=== PATIENT | female | born 1985 | race Caucasian/White ===

== ENCOUNTER 2021-04-06 07:34 | Inpatient (IN) | payer MEDICARE, MEDICAID, SELFPAY ==
--- NOTE | ~2021-04-06 | CT_ITS ---
EXAMINATION: CT ABDOMEN AND PELVIS WITH CONTRAST CLINICAL INFORMATION: Abdominal pain. Diffuse, most prominent within the right upper quadrant. COMPARISON: Most recent abdominal CT dated 11/11/2019. TECHNIQUE: Multidetector volumetric images were obtained from the superior aspect of the liver through the pubic symphysis following administration 85 mL of Omnipaque 350 intravenous contrast. Sagittal and coronal reformatted images were obtained on the technologist's workstation. Oral contrast: No This CT examination was performed using dose optimization techniques as appropriate, variously including the following: *Automated exposure control *Adjustment of mA and/or kV according to patient size (this includes techniques or standardized protocols for targeted exams where dose is matched to indication/reason for exam; i.e. extremities or head) *Use of iterative reconstruction technique DLP: 1036 mGy-cm FINDINGS: LUNG BASES: The visualized lung bases are unremarkable. LIVER, GALLBLADDER, AND BILIARY TREE: Significant hepatomegaly is redemonstrated with diffuse, heterogeneity, increased when compared to the prior examination. There is lobulated hepatic contour which has increased when compared to the prior examination. No discrete focal hepatic parenchymal lesion or biliary ductal dilatation. Status post cholecystectomy. PANCREAS: Unremarkable. SPLEEN: Splenomegaly, increased when compared to the prior examination. No parenchymal lesion. ADRENAL GLANDS: Unremarkable. KIDNEYS AND URETERS: The kidneys are normal in size, shape, and attenuation. No hydronephrosis, hydroureter, or calculi seen. No perinephric stranding. BLADDER: Distended without wall thickening or inflammatory change. GASTROINTESTINAL TRACT: Postsurgical change consistent with gastric bypass. No evidence of leak or extravasation. Mild right hepatic flexure wall thickening with minimal adjacent inflammatory change extending into the right upper quadrant, which could represent mild acute colitis. No evidence of perforation or abscess formation. No small or large bowel obstruction. Unremarkable appendix. PERITONEAL CAVITY: No intra-abdominal free air or free fluid. ABDOMINAL WALL: No significant hernia is appreciated. LYMPH NODES: Mild stranding within the retroperitoneum without significant discrete lymphadenopathy. Findings are new/increased when compared to the prior examination. VASCULAR: Unremarkable. PELVIC VISCERA: IUD within the uterus. OSSEOUS STRUCTURES: Unremarkable. CT/CT abdomen pelvis w con IMPRESSION: 1. Circumferential wall thickening of the colonic hepatic flexure with adjacent inflammatory change, consistent with acute colitis. No evidence of perforation or abscess formation. No small or large bowel obstruction. Unremarkable appendix. 2. Status post bariatric surgery without evidence of leak or obstruction. 3. Prominent hepatomegaly with increasing parenchymal echogenicity and lobulated hepatic contour when compared to the prior CT. Findings could represent steatosis and associated cirrhosis. No intra or extra hepatic biliary ductal dilatation. 4. Splenomegaly, increased when compared to the prior examination. 5. Retroperitoneal stranding without discrete lymphadenopathy, new/increased when compared to the prior examination. Fleischner guidelines were followed.
[2021-04-06 08:06] VITALS: BP 121/69; BP 136/77; PULSE 105; PULSE 94; RESP 16; TEMP 36.7; O2SAT 99; BMI 38.2
[2021-04-06 08:13] LABS: Appearance Urine HAZY; Color Urine YELLOW; Glucose Urine UA NEG (NEG); Leukocyte Esterase Urine 1+ (NEG); Nitrite Urine NEG (NEG); UACC Culture Trigger YES; Urine Blood NEG (NEG); Urine Ketones NEG (NEG); Urine Protein NEG (NEG-TRACE)
[2021-04-06 08:20] LABS: Bacteria Urine 1+ /LPF; RBC Urine 0-2 /HPF (0); Squamous Epithelial Cell Urine 2+ /LPF; UACC CULT YES
[2021-04-06 08:30] LABS: COVID-19 Test Negative (Negative)
[2021-04-06 08:35] LABS: Amphetamine Screen Urine Not Detected (Not Detect); Barbiturates, Urine Not Detected (Not Detect); Benzodiazepines Screen Urine Not Detected (Not Detect); Cannabinoid Screen Urine Not Detected (Not Detect); Cocaine Screen Urine Not Detected (Not Detect); Fentanyl, urine Not Detected (Not Detect); Opiate Screen Urine Not Detected (Not Detect); Phencyclidine Screen Urine Not Detected (Not Detect)
[2021-04-06 09:23] LABS: Basophils Absolute Auto 0.1 X10*3/uL (0.0-0.2); Basophils Percent Auto 0.8 % (0-2); SCAN SMEAR FLAG 1
[2021-04-06 09:24] LABS: Eosinophils Absolute Auto 0.2 X10*3/uL (0.0-0.4); Eosinophils Percent Auto 2.8 % (0-4); Hematocrit 27.8 % (37.0-47.0); Hemoglobin 7.5 g/dl (12.0-16.0); Imm Gran Abs Auto 0.01 X10*3/uL (0.00-0.03); Imm Gran Pct Auto 0.2 % (0.0-0.4); Lymphocytes Absolute Auto 2.6 X10*3/uL (1.2-4.9); Lymphocytes Percent Auto 40.4 % (20-40); MANUAL DIFF FLAG SCAN; Mean Corpuscular Hemoglobin 18.7 pg (27.0-33.0); Mean Corpuscular Volume 69.3 fL (80.0-98.0); Monocytes Absolute Auto 0.4 X10*3/uL (0.1-1.2); Monocytes Percent Auto 6.6 % (2-11); Neutrophils Absolute Auto 3.1 x10*3/uL (2.0-8.3); Neutrophils Percent Auto 49.2 % (45-73); Red Blood Count 4.01 X10*6/uL (4.20-5.50); Red Cell Distribution Width 20.6 % (11.0-16.0); White Blood Count 6.3 X10*3/uL (4.8-10.8)
--- NOTE | 2021-04-06 09:24 | ED.ALCOHOL ---
HPI - Alcohol General Chief Complaint: Psychiatric Symptoms Stated Complaint: abd pain Time Seen by Provider: 04/06/21 09:23 Source: patient Mode of arrival: ambulatory Limitations: no limitations History of Present Illness HPI narrative: This is a 35-year-old female past medical history significant for depression, borderline personality disorder, panic disorder, CHF, alcohol use disorder presents to the emergency department with diffuse belly pain, and hopes to stop drinking alcohol. Patient tells me that she is a heavy drinker she has between 10-20 nips/day. She tells me that this past year she had a 6 month period where she did not drink. She tells me that when she does not drink she begins to feel bad, and experiences abdominal pain. She tells me she has a history of delirium tremens and history of alcohol withdrawal seizures. At this time she is not experiencing any visual, auditory or tactile hallucinations. Her last drink was just prior to her arrival, she had a nip. She tells me she feels upset because she has not been able to stop drinking, she tells me she knows that this can kill her. She denies drug, and tobacco use. She denies suicidal ideation and homicidal ideation. She tells me she has had great luck in the past with detox facilities, she has gone to multiple ones. She denies any other medical complaints at this time other than abdominal pain. MD complaint: alcohol dependence and desires rehab Last drink: Just prior to admission Amount of alcohol consumed: 1 nip Chronic alcohol use: Yes Previous visits for alcohol intoxication: Yes Associated symptoms: abdominal pain Treatments prior to arrival: none Related Data Previous Rx's Medication Instructions Recorded ferrous sulfate 325 mg (65 mg 325 mg PO DAILY #20 tab 04/06/21 iron) tablet,delayed release pramoxine 1 % topical foam 1 appl RI DAILY #15 g 04/06/21 (Proctofoam) Allergies Allergy/AdvReac Type Severity Reaction Status Date / Time diphenhydramine AdvReac Unknown FALLS Unverified 12/15/19 19:22 [From BENADRYL] ASLEEP FOR LONG TIME- DOESN'T LIKE WAY IT MAKES FEEL pt states no food/medication Allergy Unknown Uncoded 04/22/17 00:00 a Review of Systems Review of Systems: Constitutional : No Fever, No Chills ENT/Mouth : No sore throat, No Rhinorrhea Eyes: No Eye Pain, No Swelling, No Redness Cardiovascular : No Chest Pain, No SOB Respiratory : No Cough, No Sputum Gastrointestinal : No Nausea, No Vomiting, No Diarrhea, No abdominal Pain Genitourinary : No Dysuria, No Hematuria Musculoskeletal : No joint pain, No Myalgias, No Joint Swelling Skin : No Skin Lesions, No rash Neuro : No Weakness, No Numbness Psych : No Anxiety, No Depression, No SI/HI/AH/VH All other systems reviewed and are negative Yes all other systems are reviewed and are negative [facility] Past Medical History Attestation statement: The following information was validated with the patient. Source: old records reviewed and nursing notes reviewed Social History Social History Advance Directives: No Advance Directives Information Provided: Yes Patient : No Physical Exam Vital Signs: Vital Signs: Last Vital Signs Temp 98.1 F 04/06/21 08:06 Pulse 89 04/06/21 12:23 Resp 19 04/06/21 12:23 BP 112/63 04/06/21 12:23 Pulse Ox 96 04/06/21 12:23 BMI result Body Mass Index 38.2 At this time vital signs are stable. Appearance: Alert.? Oriented X3.? No acute distress.? Head: Normocephalic, atraumatic, no step-offs or deformities Eyes: Pupils equal, round and reactive to light.? ENT: Pharynx normal.? Neck: Normal inspection.? Neck supple.? CVS: Normal heart rate and rhythm.? Pulses normal.? Respiratory: No respiratory distress.? Breath sounds normal.? Abdomen: Soft and nontender.? Skin: Skin warm and dry.? Normal skin color.? Normal skin turgor.? Extremities: No lower extremity edema.? No calf ttp. 5/5 strength to bilateral upper and lower extremities Back: No midline tenderness, no C-spine tenderness, full range of motion, no CVA tenderness bilaterally Rectal: Normal rectal tone, external hemorrhoids noted, nonthrombosed, nonbleeding. No internal hemorrhoids or lumps or masses upon palpation. OBS was obtained and sent to the lab Neuro: Oriented X 3.? No motor deficit.? No sensory deficit. Cranial nerves 2-12 intact. No resting tremors, asterixis, or tongue fasciculations. Course Reevaluation(s) Reevaluation #1: Patient's H&H is noted to be lower than previously. She does not report he minute emesis, hematochezia , she is not currently on her menses. She has not had her period forr a while as she has an IUD. UA not infected findings likely secondary to contamination. Urine tox screen negative. COVID negative. Patient is noted to be anemic, platelets are low noted to be lower than usual. Patient's ethanol to 77, chemistry appears to be at patient's baseline, with an elevated bilirubin, alk-phos and AST. Time: 09:58 Reevaluation #2: Patient now tells me that she had a few episodes of rectal bleeding yesterday, she tells me she didnt want to say anything. She scared she has ascites and bad cirrhosis. Patients OBSX1 neagtive. Noted to have an external hemorrhoid. Patient also tells me that she is on iron pills however she has not been taking it. When she gets discharged I will send her home with ferrous sulfate p.o. daily. Fluids have been given. At this time patient has been placed in physician observation to allow more time for BHN to evaluate patient. At time the observation was started, patient was common cooperative, not in acute withdrawal. Physical exam unchanged from initial. Time: 13:01 MDM - Alcohol MDM Narrative Medical decision making narrative: 924 35 yo f pmhx depression, borderline personality d/o, panic d/o, CHF, alcohol use disorder presents to the emergency department with diffuse belly pain, and hopes to stop drinking alcohol. Last drink prior to arrival. No visual, auditory or tactile hallucinations. I did a CIWA score on the patient- 0 PE benign. Neuro intact. CN 2-12 intact. Plan- basic labs, UA, urine tox, covid, ethanol. Will give ativan PO 2 mg. Medical Records Attestation: I reviewed the patient's medical records. Lab Data Attestation: I reviewed the patient's lab results. Result diagrams: 04/06/21 09:14 04/06/21 09:15 Labs: Lab Results 04/06/21 04/06/21 04/06/21 Range/Units 08:04 08:04 08:04 WBC (4.8-10.8) X10*3/uL RBC (4.20-5.50) X10*6/uL Hgb (12.0-16.0) g/dl Hct (37.0-47.0) % MCV (80.0-98.0) fL MCH (27.0-33.0) pg MCHC (31.0-35.0) g/dl RDW (11.0-16.0) % Plt Count (160-400) X10*3/uL MPV Immature Gran % (Auto) (0.0-0.4) % Neut % (Auto) (45-73) % Lymph % (Auto) (20-40) % [place] % (Auto) (2-11) % Eos % (Auto) (0-4) % Baso % (Auto) (0-2) % Lymph # (Auto) (1.2-4.9) X10*3/uL [place] # (Auto) (0.1-1.2) X10*3/uL Eos # (Auto) (0.0-0.4) X10*3/uL Baso # (Auto) (0.0-0.2) X10*3/uL Abs Immat Gran (auto) (0.00-0.03) X10*3/uL Absolute Neuts (auto) (2.0-8.3) x10*3/uL Absolute Nucleated RBC (0.0-0.012) X10*3/uL Nucleated RBC % (auto) (0.0-0.2) /100WBC Smear Tech's Comments Sodium (135-145) mmol/L Potassium (3.3-5.1) mmol/L Chloride (96-108) mmol/L Carbon Dioxide (22-29) mmol/L Anion Gap (12-20) BUN (9-16) mg/dL Creatinine (0.5-1.4) mg/dL Estim Creat Clear Calc Estimated GFR Random Glucose (60-115) mg/dL Calcium (8.4-10.2) mg/dL Magnesium (1.6-2.6) mg/dL Total Bilirubin (0.0-1.0) mg/dL AST (5-31) U/L ALT (0-31) U/L Alkaline Phosphatase (39-117) U/L Total Protein (6.5-8.0) g/dL Albumin (3.5-5.0) g/dL Lipase (8-78) U/L Urine Color YELLOW Urine Appearance HAZY Urine pH 7.0 (5.0-8.0) Ur Specific Chap[place] 1.010 (1.005-1.025) Urine Protein NEG (NEG-TRACE) MG/DL Urine Glucose (UA) NEG (NEG) MG/DL Urine Ketones NEG (NEG) MG/DL Urine Blood NEG (NEG) Urine Nitrite NEG (NEG) Ur Leukocyte Esterase 1+ H (NEG) Urine RBC 0-2 (0) /HPF Urine WBC 5-9 H (0-4) /HPF Ur Squamous Epith Cells 2+ /LPF Urine Bacteria 1+ /LPF Urine Test NEGATIVE (NEGATIVE) Stool Occult Blood (NEGATIVE) Urine Opiates Screen Not Detected (Not Detect) Urine Fentanyl Screen Not Detected (Not Detect) Ur Barbiturates Screen Not Detected (Not Detect) Ur Phencyclidine Scrn Not Detected (Not Detect) Ur Amphetamines Screen Not Detected (Not Detect) U Benzodiazepines Scrn Not Detected (Not Detect) Urine Cocaine Screen Not Detected (Not Detect) U Marijuana (THC) Screen Not Detected (Not Detect) Ethyl Alcohol mg/dL COVID-19 (GAIL) (Negative) COVID-19 Clin Com 04/06/21 04/06/21 04/06/21 Range/Units 08:05 09:14 09:14 WBC 6.3 (4.8-10.8) X10*3/uL RBC 4.01 L (4.20-5.50) X10*6/uL Hgb 7.5 L (12.0-16.0) g/dl Hct 27.8 L (37.0-47.0) % MCV 69.3 L (80.0-98.0) fL MCH 18.7 L (27.0-33.0) pg MCHC 27.0 L (31.0-35.0) g/dl RDW 20.6 H (11.0-16.0) % Plt Count 98 L (160-400) X10*3/uL MPV Not Reportable Immature Gran % (Auto) 0.2 (0.0-0.4) % Neut % (Auto) 49.2 (45-73) % Lymph % (Auto) 40.4 H (20-40) % [place] % (Auto) 6.6 (2-11) % Eos % (Auto) 2.8 (0-4) % Baso % (Auto) 0.8 (0-2) % Lymph # (Auto) 2.6 (1.2-4.9) X10*3/uL [place] # (Auto) 0.4 (0.1-1.2) X10*3/uL Eos # (Auto) 0.2 (0.0-0.4) X10*3/uL Baso # (Auto) 0.1 (0.0-0.2) X10*3/uL Abs Immat Gran (auto) 0.01 (0.00-0.03) X10*3/uL Absolute Neuts (auto) 3.1 (2.0-8.3) x10*3/uL Absolute Nucleated RBC 0.000 (0.0-0.012) X10*3/uL Nucleated RBC % (auto) 0.0 (0.0-0.2) /100WBC Smear Tech's Comments VERIFIED Sodium (135-145) mmol/L Potassium (3.3-5.1) mmol/L Chloride (96-108) mmol/L Carbon Dioxide (22-29) mmol/L Anion Gap (12-20) BUN (9-16) mg/dL Creatinine (0.5-1.4) mg/dL Estim Creat Clear Calc Estimated GFR Random Glucose (60-115) mg/dL Calcium (8.4-10.2) mg/dL Magnesium (1.6-2.6) mg/dL Total Bilirubin (0.0-1.0) mg/dL AST (5-31) U/L ALT (0-31) U/L Alkaline Phosphatase (39-117) U/L Total Protein (6.5-8.0) g/dL Albumin (3.5-5.0) g/dL Lipase (8-78) U/L Urine Color Urine Appearance Urine pH (5.0-8.0) Ur Specific Chap[place] (1.005-1.025) Urine Protein (NEG-TRACE) MG/DL Urine Glucose (UA) (NEG) MG/DL Urine Ketones (NEG) MG/DL Urine Blood (NEG) Urine Nitrite (NEG) Ur Leukocyte Esterase (NEG) Urine RBC (0) /HPF Urine WBC (0-4) /HPF Ur Squamous Epith Cells /LPF Urine Bacteria /LPF Urine Test (NEGATIVE) Stool Occult Blood (NEGATIVE) Urine Opiates Screen (Not Detect) Urine Fentanyl Screen (Not Detect) Ur Barbiturates Screen (Not Detect) Ur Phencyclidine Scrn (Not Detect) Ur Amphetamines Screen (Not Detect) U Benzodiazepines Scrn (Not Detect) Urine Cocaine Screen (Not Detect) U Marijuana (THC) Screen (Not Detect) Ethyl Alcohol 277 mg/dL COVID-19 (GAIL) Negative (Negative) COVID-19 Clin Com See Note 04/06/21 04/06/21 Range/Units 09:15 12:50 WBC (4.8-10.8) X10*3/uL RBC (4.20-5.50) X10*6/uL Hgb (12.0-16.0) g/dl Hct (37.0-47.0) % MCV (80.0-98.0) fL MCH (27.0-33.0) pg MCHC (31.0-35.0) g/dl RDW (11.0-16.0) % Plt Count (160-400) X10*3/uL MPV Immature Gran % (Auto) (0.0-0.4) % Neut % (Auto) (45-73) % Lymph % (Auto) (20-40) % [place] % (Auto) (2-11) % Eos % (Auto) (0-4) % Baso % (Auto) (0-2) % Lymph # (Auto) (1.2-4.9) X10*3/uL [place] # (Auto) (0.1-1.2) X10*3/uL Eos # (Auto) (0.0-0.4) X10*3/uL Baso # (Auto) (0.0-0.2) X10*3/uL Abs Immat Gran (auto) (0.00-0.03) X10*3/uL Absolute Neuts (auto) (2.0-8.3) x10*3/uL Absolute Nucleated RBC (0.0-0.012) X10*3/uL Nucleated RBC % (auto) (0.0-0.2) /100WBC Smear Tech's Comments Sodium 142 (135-145) mmol/L Potassium 3.9 (3.3-5.1) mmol/L Chloride 110 H (96-108) mmol/L Carbon Dioxide 24 (22-29) mmol/L Anion Gap 12 (12-20) BUN 7 L (9-16) mg/dL Creatinine 0.71 (0.5-1.4) mg/dL Estim Creat Clear Calc 117.6 Estimated GFR > 60 Random Glucose 91 (60-115) mg/dL Calcium 8.1 L (8.4-10.2) mg/dL Magnesium 2.0 (1.6-2.6) mg/dL Total Bilirubin 1.4 H (0.0-1.0) mg/dL AST 52 H (5-31) U/L ALT 27 (0-31) U/L Alkaline Phosphatase 152 H (39-117) U/L Total Protein 6.4 L (6.5-8.0) g/dL Albumin 3.6 (3.5-5.0) g/dL Lipase 38 (8-78) U/L Urine Color Urine Appearance Urine pH (5.0-8.0) Ur Specific [place] (1.005-1.025) Urine Protein (NEG-TRACE) MG/DL Urine Glucose (UA) (NEG) MG/DL Urine Ketones (NEG) MG/DL Urine Blood (NEG) Urine Nitrite (NEG) Ur Leukocyte Esterase (NEG) Urine RBC (0) /HPF Urine WBC (0-4) /HPF Ur Squamous Epith Cells /LPF Urine Bacteria /LPF Urine Test (NEGATIVE) Stool Occult Blood NEGATIVE (NEGATIVE) Urine Opiates Screen (Not Detect) Urine Fentanyl Screen (Not Detect) Ur Barbiturates Screen (Not Detect) Ur Phencyclidine Scrn (Not Detect) Ur Amphetamines Screen (Not Detect) U Benzodiazepines Scrn (Not Detect) Urine Cocaine Screen (Not Detect) U Marijuana (THC) Screen (Not Detect) Ethyl Alcohol mg/dL COVID-19 (GAIL) (Negative) COVID-19 Clin Com Imaging Data CT scan - abdomen: Attestation: I personally reviewed and interpreted this imaging study as follows: Radiologist's impression: CT/CT abdomen pelvis w con IMPRESSION: ? 1. Circumferential wall thickening of the colonic hepatic flexure with adjacent inflammatory change, consistent with acute colitis. No evidence of perforation or abscess formation. No small or large bowel obstruction. Unremarkable appendix. 2. Status post bariatric surgery without evidence of leak or obstruction. 3. Prominent hepatomegaly with increasing parenchymal echogenicity and lobulated hepatic contour when compared to the prior CT. Findings could represent steatosis and associated cirrhosis. No intra or extra hepatic biliary ductal dilatation. 4. Splenomegaly, increased when compared to the prior examination. 5. Retroperitoneal stranding without discrete lymphadenopathy, new/increased when compared to the prior examination. ? Fleischner guidelines were followed. Critical Care Time Critical Care Time Critical Care Time: No Discharge Plan Discharge Clinical Impression: Alcohol abuse, Abdominal pain, Colitis, Anemia Patient Disposition: Still a Patient Instructions: Abuse of Alcohol (ED), Alcohol Withdrawal (ED), Abdominal Pain (ED), Anemia (ED), Colitis (ED), Alcohol Use Disorder (ED) Additional Instructions: Take your medications as prescribed. If you were prescribed antibiotics today, it is important that you take your medication to their entirety, do not skip any doses, do not finish them early. Follow-up with your primary care provider this week. Return to the emergency department with new or worsening symptoms. In case of emergency call 911 Prescriptions: New pramoxine [Proctofoam] 1 % foam 1 appl RI DAILY Qty: 15 RF: 0 ferrous sulfate 325 mg (65 mg iron) tablet,delayed release (DR/EC) 325 mg PO DAILY Qty: 20 RF: 0
[2021-04-06 09:30] LABS: PLT ABN DIST 1
[2021-04-06] MEDS: LORazepam 1 MG TABLET 2 MG PO ×3 (09:38→21:18)
[2021-04-06 09:40] LABS: UPreg QC Valid YES; Urine Pregnancy NEGATIVE (NEGATIVE)
[2021-04-06 09:43] LABS: Platelet Count 98 X10*3/uL (160-400)
[2021-04-06 09:44] LABS: SLIDE REVIEW VERIFIED
[2021-04-06 09:59] LABS: Ethanol 277 mg/dL
[2021-04-06 10:03] LABS: Alanine Aminotransferase 27 U/L (0-31); Albumin Level 3.6 g/dL (3.5-5.0); Alkaline Phosphatase 152 U/L (39-117); Anion Gap 12 (12-20); Aspartate Amino Transferase 52 U/L (5-31); Bilirubin Total 1.4 mg/dL (0.0-1.0); Blood Urea Nitrogen 7 mg/dL (9-16); Calcium 8.1 mg/dL (8.4-10.2); Carbon Dioxide 24 mmol/L (22-29); Chloride 110 mmol/L (96-108); Creatinine Clr Calc Pharmacy 117.6; Estimated Glomerular Filt Rate > 60; Glucose Random 91 mg/dL (60-115); Lipase 38 U/L (8-78); Potassium 3.9 mmol/L (3.3-5.1); Sodium 142 mmol/L (135-145); Total Protein 6.4 g/dL (6.5-8.0)
--- NOTE | 2021-04-06 10:11 | PC.NURSE ---
patient referred to [facility] for crisis eval
[2021-04-06] MEDS: iohexoL 350 MG/ML 100 ML INFUS..BTL IV (11:39)
[2021-04-06 12:23] VITALS: BP 112/63; PULSE 89; RESP 19; O2SAT 96
--- NOTE | 2021-04-06 12:34 | PC.NURSE ---
sitter at bedside
[2021-04-06 12:56] LABS: OBS Int Ctl Valid YES; OBS1 NEGATIVE (NEGATIVE)
[2021-04-06] MEDS: 0.9 % Sodium Chloride 1,000 ML 999 ML IV (12:59)
[2021-04-06] MEDS: LORazepam 1 MG TABLET PO (13:42)
--- NOTE | 2021-04-06 14:10 | PC.NURSE ---
SPOKE WITH SISTER WHO OFFERS CONCERN FOR PTS SAFETY. SHE REPORTS FREQUENT STATEMENTS OF SI INTENT BY ETOH INTAKE, EXACERBATING HER MEDICAL DX. THIS RN OFFERED TO RELAY CONCERNS TO PROVIDER [facility] CLINICIAN
--- NOTE | 2021-04-06 17:41 | PC.NURSE ---
Pt remains alert and oriented x4, calm and cooperative. Pt assessed with PA Nemo and RN Caty present, pt states If I leave right know I'm heading to a liquor store and drinking until I pass out , pt states SI when asked by PA. LEONARDO Shirley made aware of PA and learning and development administrator with RN present to witness. Pt remains cooperative. CIWA 6 at this time, pt asking for Ativan, PA made aware.
[2021-04-06 17:55] VITALS: BP 146/84; PULSE 100; TEMP 37.2; O2SAT 98
--- NOTE | 2021-04-06 18:54 | MHC.CARE ---
CARE Team was informed by [facility] cryptologic supervisor Peggy that no detox bed could be found tonight for pt so they will follow up with pt in the morning.
--- NOTE | 2021-04-06 22:33 | PC.NURSE ---
Patient resting comfortably in bed at this time. CIWA scale in place was given 2 mg of ativan for scale of 9. aware of plan of care to discharge straight to detox.
--- NOTE | 2021-04-07 | ECG_ITS ---
Test Reason : med clearance Blood Pressure : / mmHG Vent. Rate : 103 BPM Atrial Rate : 103 BPM P-R Int : 170 ms QRS Dur : 098 ms QT Int : 358 ms P-R-T Axes : 039 003 024 degrees QTc Int : 468 ms Sinus tachycardia Minimal voltage criteria for LVH, may be normal variant ( Gardner product ) Abnormal ECG No previous ECGs available Referred By: Martin De Leon Electronically Signed By:CARLOS RODRIGUEZ
[2021-04-07] MEDS: chlordiazePOXIDE HCl 25 MG CAPSULE PO ×2 (04:47→11:43)
[2021-04-07 08:30] VITALS: BP 147/79; PULSE 101; TEMP 37.2; O2SAT 99
--- NOTE | 2021-04-07 08:40 | PC.NURSE ---
heriberton present to see the pt.
--- NOTE | 2021-04-07 09:13 | PC.NURSE ---
pt talking on the phone to her sister. calm and cooperative.
[2021-04-07] MEDS: Nicotine 7 MG PATCH.TD24 TRANSDERMA (11:43)
[2021-04-07 13:00] LABS: COVID-19 Test Negative (Negative); IDNOW Serial# 08D9AD1C
--- NOTE | 2021-04-07 15:34 | PC.NURSE ---
Pt alert and oriented x4, calm and cooperative. Pt denies pain. CIWA 5. Pt aware of being admitted an agrees to plan. Pt wheeled up to M3 without issues.
[2021-04-07] MEDS: LORazepam 1 MG TABLET PO (15:45)
[2021-04-07 16:13] VITALS: BP 147/92; PULSE 109; RESP 16; TEMP 36.8; O2SAT 100
[2021-04-07] MEDS: Propranolol HCL 20 MG TABLET PO ×2 (16:41→22:10)
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
[2021-04-07 18:26] VITALS: BP 144/70; PULSE 91; RESP 18; O2SAT 98
[2021-04-07] MEDS: LORazepam 1 MG TABLET 2 MG PO ×2 (18:37→22:09)
[2021-04-07] MEDS: Ondansetron ODT 4 MG TAB.RAPDIS TRANSLINGU (22:33)
[2021-04-07] MEDS: Mirtazapine 7.5 MG TABLET PO (22:33)
[2021-04-08 02:00] VITALS: BP 128/64; PULSE 73; RESP 16; TEMP 37.1; O2SAT 99
[2021-04-08] MEDS: LORazepam 1 MG TABLET PO ×4 (02:09→22:03)
--- NOTE | 2021-04-08 02:13 | PC.NURSE ---
At 0200 patient scored a 9 on the CIWA scale. Patient given 1 mg Ativan.
[2021-04-08 06:00] VITALS: BP 117/62; PULSE 78; RESP 16; TEMP 36.9; O2SAT 96
[2021-04-08] MEDS: Folic Acid 1 MG TABLET PO (08:47)
[2021-04-08] MEDS: Multivitamin TABLET 1 TAB PO (08:47)
[2021-04-08] MEDS: Thiamine HCL 100 MG TABLET PO (08:47)
[2021-04-08] MEDS: Propranolol HCL 20 MG TABLET PO ×2 (08:47→20:21)
[2021-04-08 08:58] VITALS: BP 122/58; PULSE 64; TEMP 36.8; O2SAT 98
[2021-04-08] MEDS: Nicotine 21 MG PATCH.TD24 TRANSDERMA (09:05)
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
[2021-04-08 11:17] LABS: Estimated Average Glucose 85 mg/dL; Hemoglobin A1c % 4.6 %
[2021-04-08 11:18] LABS: Cholesterol 128 mg/dL; HDL Cholesterol 31 mg/dL; Iron 24 mcg/dL (30-160); LDL Cholesterol Calculated 86 mg/dl; Percent Iron Saturation 5 % (15-50); Total Iron Binding Capacity 496 mcg/dL (228-428); Triglycerides 56 mg/dL; Unsaturated Iron Binding 472 ug/dL
[2021-04-08 11:38] LABS: TSH reflex Free T4 1.18 uIU/mL (0.32-4.0)
[2021-04-08 11:43] LABS: HBc Num1 0.06 S/CO (0.00-0.79); HBsAGNum1 0.18 S/CO (0.00-0.99); Hepatitis B Core Antibody Nonreactive (Nonreactive); Hepatitis B Surface Antigen Negative (Negative); ~HepC Num1 0.07 S/CO (0.00-0.79); ~Hepatitis C Antibody Nonreactive (Nonreactive)
[2021-04-08 12:18] LABS: HBS Num1 18.56 mIU/mL (0-7.99); ~Hepatitis B Surface Antibody REACTIVE (Nonreactive)
[2021-04-08] MEDS: LORazepam 1 MG TABLET 2 MG PO (13:54)
[2021-04-08] MEDS: Ferrous Sulfate 324 MG TABLET.DR PO (13:55)
[2021-04-08] MEDS: Famotidine 20 MG TABLET PO ×2 (13:55→20:21)
[2021-04-08] MEDS: Gabapentin 400 MG CAPSULE PO ×3 (13:55→20:21)
[2021-04-08 16:15] LABS: Folate 19.7 ng/mL (> or = 4.0); Vitamin B12 356 pg/mL (200-900)
[2021-04-08] MEDS: Omeprazole 20 MG CAPSULE.DR PO (17:17)
--- NOTE | 2021-04-08 19:36 | PC.NURSE ---
4pm Ativan not given due to pt being sedated, per Shanique Cueva. Pt received 2mg Ativan at 2pm, provider aware.
[2021-04-08 20:17] VITALS: BP 125/65; PULSE 99; RESP 18; TEMP 36.7; O2SAT 100
[2021-04-08 22:00] VITALS: BP 126/72; PULSE 85; RESP 18; TEMP 37.1; O2SAT 99
[2021-04-09] MEDS: LORazepam 1 MG TABLET 2 MG PO ×3 (02:09→11:49)
[2021-04-09 06:00] VITALS: BP 104/64; PULSE 84; RESP 16; TEMP 36.7; O2SAT 99
[2021-04-09] MEDS: Omeprazole 20 MG CAPSULE.DR PO ×2 (06:11→16:27)
[2021-04-09] MEDS: Nicotine 21 MG PATCH.TD24 TRANSDERMA (06:24)
[2021-04-09] MEDS: Multivitamin TABLET 1 TAB PO (08:26)
[2021-04-09] MEDS: Gabapentin 400 MG CAPSULE PO ×3 (08:27→22:59)
[2021-04-09] MEDS: Ferrous Sulfate 324 MG TABLET.DR PO (08:27)
[2021-04-09] MEDS: Thiamine HCL 100 MG TABLET PO (08:27)
[2021-04-09] MEDS: Propranolol HCL 20 MG TABLET PO ×2 (08:27→22:59)
[2021-04-09] MEDS: Famotidine 20 MG TABLET PO ×2 (08:28→22:59)
[2021-04-09] MEDS: Folic Acid 1 MG TABLET PO (08:28)
[2021-04-09] MEDS: LORazepam 1 MG TABLET PO ×3 (08:28→22:59)
--- NOTE | 2021-04-09 14:43 | P.PNPSI_ITS ---
Subjective Subjective Date of Service: 04/09/21 Reason For Visit: SI Subjective Notes: Conditional Voluntary Interim History: Pt tearful during interview, initially reporting she felt as if sister and mother against her for raising concerns about ehr ability to care for son. Pt later does admit that she is powerless to alcohol. She reports drinking and hoping she would not have GI bleed to as she did not follow up with providers after she had to be resuscitated due to severe blood loss s/s of esophagieal varices due to alcohol use. Pt endorses depressed mood, hopeless, worried about losing custody of her son, anxious. She does admit to alcohol cravings today stating I would give anything for a drink right now. Pt visible in the unit, VS- SBP<150, DBP <90. no s/s of delirum. No VH/AH. Review of Systems Review of Systems Constitutional : No Fever, No Chills ENT/Mouth : No sore throat, No Rhinorrhea Eyes: No Eye Pain, No Swelling, No Redness Cardiovascular : No Chest Pain, No SOB Respiratory : No Cough, No Sputum Gastrointestinal : No Nausea, No Vomiting, No Diarrhea, No abdominal Pain Genitourinary : No Dysuria, No Hematuria Musculoskeletal : No joint pain, No Myalgias, No Joint Swelling Skin : No Skin Lesions, No rash Neuro : No Weakness, No Numbness Psych : No Anxiety, No Depression, No SI/HI/AH/VH All other systems reviewed and are negative Yes all other systems are reviewed and are negative Reports system reviewed and no additional complaints, except as documented Cardiovascular: Denies chest pain, Denies chest pain at rest, Denies Epigastric Pain, Denies rapid heart rate, Denies lightheadedness, Denies dyspnea and Denies dyspnea on exertion Respiratory: Denies chest congestion, Denies hemoptysis, Denies pain with cough, Denies dyspnea and Denies dyspnea on exertion Gastrointestinal: Denies constipation, Reports dyspepsia, Denies diarrhea and Reports nausea Musculoskeletal: Reports myalgias Psychiatric: Reports depression Allergic/Immunologic: Denies no additional allergic/immunologic complaints Mental Status Exam Mental Status Exam Narrative: Appearance: casually groomed, disheveled, poor hygiene in NAD Behavior:cooperative psychomotor:restless Speech:clear, normal rate/rhythm/volume, spontaneous Thought process:linear Thought content:no signs of psychosis, feeling overwhelmed, hopeless, helpless Mood: depressed and anxious Affect: blunted SI:passive HI:none VH/AH:none Delusions:none Insight/judgment:poor x 2. Memory/cog: alert, oriented x 3. grossly intact to conversational testing but not formally tested. Diagnostics Vital Signs (24Hr): Vital Signs - 24 hr 04/08/21 20:17 04/08/21 22:00 04/09/21 06:00 Temperature 98.0 F 98.7 F 98.1 F Pulse Rate 99 85 84 Respiratory Rate 18 18 16 Blood Pressure 125/65 126/72 104/64 Pulse Oximetry 100 99 99 BMI result Body Mass Index 38.2 Labs Results: 04/06/21 09:14 04/06/21 09:15 Labs: Laboratory Results - last 48 hr 04/08/21 04/08/21 04/08/21 10:51 10:51 10:51 Estimat Average Glucose 85 Hemoglobin A1c % 4.6 Iron 24 L TIBC 496 H % Saturation 5 L Unsat Iron Binding 472 Triglycerides 56 Cholesterol 128 LDL Cholesterol, Calc 86 HDL Cholesterol 31 Vitamin B12 Folate TSH 1.18 Hep Bs Antigen Hep Bs Antibody Hep B Core Total Ab Hepatitis C Ab (EIA) 04/08/21 04/08/21 10:51 15:15 Estimat Average Glucose Hemoglobin A1c % Iron TIBC % Saturation Unsat Iron Binding Triglycerides Cholesterol LDL Cholesterol, Calc HDL Cholesterol Vitamin B12 356 Folate 19.7 TSH Hep Bs Antigen Negative Hep Bs Antibody REACTIVE Hep B Core Total Ab Nonreactive Hepatitis C Ab (EIA) Nonreactive Imaging Radiology Impressions: ITS Impressions Abdomen/Pelvis CT 04/06/21 11:37 IMPRESSION: 1. Circumferential wall thickening of the colonic hepatic flexure with adjacent inflammatory change, consistent with acute colitis. No evidence of perforation or abscess formation. No small or large bowel obstruction. Unremarkable appendix. 2. Status post bariatric surgery without evidence of leak or obstruction. 3. Prominent hepatomegaly with increasing parenchymal echogenicity and lobulated hepatic contour when compared to the prior CT. Findings could represent steatosis and associated cirrhosis. No intra or extra hepatic biliary ductal dilatation. 4. Splenomegaly, increased when compared to the prior examination. 5. Retroperitoneal stranding without discrete lymphadenopathy, new/increased when compared to the prior examination. Fleischner guidelines were followed. Medications Medications Current Medications Acetaminophen (Acetaminophen 325 Mg Tablet) 650 mg PO Q6H PRN PRN Reason: Headache/Pain Mild Scale (1-3) Al Hydroxide/Mg Hydroxide (Magnesium Hydrox/Alum Hydrox 30 Ml Oral.Susp) 30 ml PO Q6H PRN PRN Reason: Heartburn/Nausea Famotidine (Famotidine 20 Mg Tablet) 20 mg PO BID [facility] Last Admin: 04/09/21 08:28 Dose: 20 mg Documented by: Ferrous Sulfate (Ferrous Sulfate 324 Mg Tablet.) 324 mg PO DAILY [facility] Last Admin: 04/09/21 08:27 Dose: 324 mg Documented by: Folic Acid (Folic Acid 1 Mg Tablet) 1 mg PO DAILY [facility] Stop: 04/11/21 08:59 Last Admin: 04/09/21 08:28 Dose: 1 mg Documented by: Gabapentin (Gabapentin 400 Mg Capsule) 400 mg PO TID [facility] Last Admin: 04/09/21 08:27 Dose: 400 mg Documented by: Hydroxyzine HCl (Hydroxyzine Hcl 25 Mg Tablet) 25 mg PO BEDTIME PRN PRN Reason: Anxiety Lorazepam (Lorazepam 1 Mg Tablet) 1 mg PO Q4H PRN PRN Reason: CIWA 6-9 Stop: 04/11/21 14:14 Last Admin: 04/08/21 22:03 Dose: 1 mg Documented by: Lorazepam (Lorazepam 1 Mg Tablet) 2 mg PO Q4H PRN PRN Reason: CIWA 10-14 Last Admin: 04/09/21 11:49 Dose: 2 mg Documented by: Lorazepam (Lorazepam 1 Mg Tablet) 3 mg PO Q4H PRN PRN Reason: CIWA 15 or greater and call Lorazepam (Lorazepam 1 Mg Tablet) 1 mg PO TID [facility] Last Admin: 04/09/21 08:28 Dose: 1 mg Documented by: Magnesium Hydroxide (Milk Of Magnesia 30 Ml Oral.Susp) 30 ml PO DAILY PRN PRN Reason: Constipation Multivitamins/Vitamin C (Multivitamin Tablet) 1 tab PO DAILY [facility] Stop: 04/11/21 08:59 Last Admin: 04/09/21 08:26 Dose: 1 tab Documented by: Nicotine (Nicotine 21 Mg Patch.Td24) 21 mg TRANSDERMA DAILY [facility] Last Admin: 04/09/21 06:24 Dose: 21 mg Documented by: Nicotine Polacrilex (Nicotine Polacrilex 2 Mg Gum) 2 mg BUCCAL Q2H PRN PRN Reason: Nicotine Cravings Omeprazole (Omeprazole 20 Mg Capsule.) 20 mg PO BID@0630,1630 [facility] Last Admin: 04/09/21 06:11 Dose: 20 mg Documented by: Propranolol HCl (Propranolol Hcl 20 Mg Tablet) 20 mg PO BID [facility]; Protocol Last Admin: 04/09/21 08:27 Dose: 20 mg Documented by: Thiamine HCl (Thiamine Hcl 100 Mg Tablet) 100 mg PO DAILY [facility] Stop: 04/11/21 08:59 Last Admin: 04/09/21 08:27 Dose: 100 mg Documented by: Trazodone HCl (Trazodone Hcl 50 Mg Tablet) 50 mg PO BEDTIME PRN PRN Reason: Insomnia Allergies Allergies Allergy/AdvReac Type Severity Reaction Status Date / Time diphenhydramine AdvReac Unknown FALLS Unverified 12/15/19 19:22 [From BENADRYL] ASLEEP FOR LONG TIME- DOESN'T LIKE WAY IT MAKES FEEL pt states no food/medication Allergy Unknown Uncoded 04/22/17 00:00 a Assessment & Plan Assessment & Plan (1) MDD (major depressive disorder), recurrent episode, severe: Status: Acute Code(s): F33.2 - Major depressive disorder, recurrent severe without psychotic features (2) Alcohol use disorder, severe, dependence: Status: Acute Code(s): F10.20 - Alcohol dependence, uncomplicated Assessment and Plan: Ms. Rosas is a 35 year-old woman with hx of alcohol use dependece severe with significant medical complication including cirrhosis and esophageal varices who self presented to [facility] ED reporting increased depression, anhedonia, passive suicidal ideation, wanting to drink until . Utox negative. BAL 277. Last drink on 04/06- monitoring alcohol withdrawal given severity of alcohol use, hx of alcohol withdrawal seizures. PLAN: 1. Admit to M3, 15 minutes checks, CV 2. Continue Gabapentin 400mg po TID 3. Continue CIWA q4hrs, PRN ativan per score, in addition scheduled ativan 1mg po TID. Continue Thiamine 100mg po daily, folic acid 1 mg po daily. SBP has been <150 today, DBP<90. 4. Started on ferrous sulfate 325 po daily for microcytic anemia. 5. obtain collateral information-sister concern about pt's health ability to care for herself and her son. 6. aftercare planning I spent minutes with the patient and/or on the patient floor today, greater than?50% of which was spent counseling/coordinating care. Reason for contiued inpatient stay Substantial Risk for: inability to function
[2021-04-09 18:00] VITALS: BP 128/73; PULSE 88; O2SAT 98
[2021-04-09] MEDS: LORazepam 1 MG TABLET 3 MG PO (20:35)
--- NOTE | 2021-04-09 20:46 | PC.NURSE ---
CIWA scale of [address] De Leon. to give prn 3 mg ativan.
--- NOTE | 2021-04-09 23:43 | PC.NURSE ---
CIWA now 6. Previous CIWA was 21 which included anxiousness, restlessness, a/v hallucinations and initial confusion when woken up for assessment. as previously documented the psychiatrist was notified of score and 3 mg ativan administered. after ativan was administered patient became more visible, reported being able to tolerate being around others with less irritability, ''the feeling of withdrawal was at bay and I felt more comfortable in my skin'' less diaphoretic and despite self report of nausea was able to eat and drink without event. patient stayed visible in milieu until HS medication administered at 2300.
[2021-04-10 08:38] LABS: ~Hepatitis A Antibody IgM Nonreactive (Nonreactive)
[2021-04-10 08:39] VITALS: BP 133/61; PULSE 68; RESP 16; TEMP 36.6; O2SAT 100
[2021-04-10] MEDS: Ferrous Sulfate 324 MG TABLET.DR PO (09:09)
[2021-04-10] MEDS: Omeprazole 20 MG CAPSULE.DR PO ×2 (09:09→14:52)
[2021-04-10] MEDS: Nicotine 21 MG PATCH.TD24 TRANSDERMA (09:09)
[2021-04-10] MEDS: LORazepam 1 MG TABLET PO ×4 (09:09→18:04)
[2021-04-10] MEDS: Gabapentin 400 MG CAPSULE PO (09:09)
[2021-04-10] MEDS: Multivitamin TABLET 1 TAB PO (09:09)
[2021-04-10] MEDS: Propranolol HCL 20 MG TABLET PO ×2 (09:09→22:46)
[2021-04-10] MEDS: Folic Acid 1 MG TABLET PO (09:09)
[2021-04-10] MEDS: Famotidine 20 MG TABLET PO ×2 (09:09→22:45)
[2021-04-10] MEDS: Thiamine HCL 100 MG TABLET PO (09:10)
--- NOTE | 2021-04-10 12:24 | HO.PSYCHPN ---
Subjective Subjective Date of Service: 04/10/21 Reason For Visit: SI Subjective Notes: Conditional Voluntary Interim History: Pt less angry and less tearful today. Pt reports she was very upset about filing to DCF yesterday, but today feels that she has to continue her treatment. Pt reports waking up several times at night. Pt endorses feeling anxious, worried that she will never get better in terms of depression and trauma. She minimizes at times alcohol use reporting she was functioning well. At same time admits not following up with providers regarding cirrhosis or esophageal varices as she was drinking. She does report fear of dying from severe bleeding any time as she continued drinking. Pt VS SBP<150, DBP<90, reports sounds amplified. she reports craving alcohol. Medication Compliance: Yes Side effects from medications: No Attending Groups: Intermittent Review of Systems Acute medical concerns: No Review of Systems Review of Systems Constitutional : No Fever, No Chills ENT/Mouth : No sore throat, No Rhinorrhea Eyes: No Eye Pain, No Swelling, No Redness Cardiovascular : No Chest Pain, No SOB Respiratory : No Cough, No Sputum Gastrointestinal : No Nausea, No Vomiting, No Diarrhea, No abdominal Pain Genitourinary : No Dysuria, No Hematuria Musculoskeletal : No joint pain, No Myalgias, No Joint Swelling Skin : No Skin Lesions, No rash Neuro : No Weakness, No Numbness Psych : No Anxiety, No Depression, No SI/HI/AH/VH All other systems reviewed and are negative Yes all other systems are reviewed and are negative Reports system reviewed and no additional complaints, except as documented Cardiovascular: Denies chest pain, Denies chest pain at rest, Denies Epigastric Pain, Denies rapid heart rate, Denies lightheadedness, Denies dyspnea and Denies dyspnea on exertion Respiratory: Denies chest congestion, Denies hemoptysis, Denies pain with cough, Denies dyspnea and Denies dyspnea on exertion Gastrointestinal: Denies constipation, Reports dyspepsia, Denies diarrhea and Reports nausea Musculoskeletal: Reports myalgias Psychiatric: Reports depression Allergic/Immunologic: Denies no additional allergic/immunologic complaints Mental Status Exam Mental Status Exam Narrative: Appearance: casually groomed, fair hygiene in NAD Behavior:cooperative psychomotor:no agitation or retardation noted Speech:clear, normal rate/rhythm/volume, spontaneous Thought process:linear Thought content:no signs of psychosis, feeling overwhelmed, hopeless, helpless Mood: depressed and anxious Affect: blunted SI:passive HI:none VH/AH:none Delusions:none Insight/judgment:poor x 2. Memory/cog: alert, oriented x 3. grossly intact to conversational testing but not formally tested. Diagnostics Vital Signs (24Hr): Vital Signs - 24 hr 04/09/21 18:00 04/10/21 08:39 04/10/21 13:09 Temperature 97.9 F Pulse Rate 88 68 81 Respiratory Rate 16 Blood Pressure 128/73 133/61 101/59 L Pulse Oximetry 98 100 BMI result Body Mass Index 38.2 Labs Results: 04/06/21 09:14 04/06/21 09:15 Labs: Laboratory Results - last 48 hr 04/08/21 04/08/21 10:51 15:15 Vitamin B12 356 Folate 19.7 Hepatitis A IgM Ab Nonreactive Imaging Radiology Impressions: ITS Impressions Abdomen/Pelvis CT 04/06/21 11:37 IMPRESSION: 1. Circumferential wall thickening of the colonic hepatic flexure with adjacent inflammatory change, consistent with acute colitis. No evidence of perforation or abscess formation. No small or large bowel obstruction. Unremarkable appendix. 2. Status post bariatric surgery without evidence of leak or obstruction. 3. Prominent hepatomegaly with increasing parenchymal echogenicity and lobulated hepatic contour when compared to the prior CT. Findings could represent steatosis and associated cirrhosis. No intra or extra hepatic biliary ductal dilatation. 4. Splenomegaly, increased when compared to the prior examination. 5. Retroperitoneal stranding without discrete lymphadenopathy, new/increased when compared to the prior examination. Fleischner guidelines were followed. Medications Medications Current Medications Acetaminophen (Acetaminophen 325 Mg Tablet) 650 mg PO Q6H PRN PRN Reason: Headache/Pain Mild Scale (1-3) Al Hydroxide/Mg Hydroxide (Magnesium Hydrox/Alum Hydrox 30 Ml Oral.Susp) 30 ml PO Q6H PRN PRN Reason: Heartburn/Nausea Famotidine (Famotidine 20 Mg Tablet) 20 mg PO BID [facility] Last Admin: 04/10/21 09:09 Dose: 20 mg Documented by: Ferrous Sulfate (Ferrous Sulfate 324 Mg Tablet.) 324 mg PO DAILY [facility] Last Admin: 04/10/21 09:09 Dose: 324 mg Documented by: Folic Acid (Folic Acid 1 Mg Tablet) 1 mg PO DAILY [facility] Stop: 04/11/21 08:59 Last Admin: 04/10/21 09:09 Dose: 1 mg Documented by: Gabapentin (Gabapentin 300 Mg Capsule) 600 mg PO TID [facility] Hydroxyzine HCl (Hydroxyzine Hcl 25 Mg Tablet) 25 mg PO BEDTIME PRN PRN Reason: Anxiety Lorazepam (Lorazepam 1 Mg Tablet) 1 mg PO Q4H PRN PRN Reason: CIWA 6-9 Stop: 04/11/21 14:14 Last Admin: 04/10/21 13:13 Dose: 1 mg Documented by: Lorazepam (Lorazepam 1 Mg Tablet) 2 mg PO Q4H PRN PRN Reason: CIWA 10-14 Last Admin: 04/09/21 11:49 Dose: 2 mg Documented by: Lorazepam (Lorazepam 1 Mg Tablet) 3 mg PO Q4H PRN PRN Reason: CIWA 15 or greater and call Last Admin: 04/09/21 20:35 Dose: 3 mg Documented by: Lorazepam (Lorazepam 0.5 Mg Tablet) 0.5 mg PO TID [facility] Magnesium Hydroxide (Milk Of Magnesia 30 Ml Oral.Susp) 30 ml PO DAILY PRN PRN Reason: Constipation Multivitamins/Vitamin C (Multivitamin Tablet) 1 tab PO DAILY [facility] Stop: 04/11/21 08:59 Last Admin: 04/10/21 09:09 Dose: 1 tab Documented by: Nicotine (Nicotine 21 Mg Patch.Td24) 21 mg TRANSDERMA DAILY [facility] Last Admin: 04/10/21 09:09 Dose: 21 mg Documented by: Nicotine Polacrilex (Nicotine Polacrilex 2 Mg Gum) 2 mg BUCCAL Q2H PRN PRN Reason: Nicotine Cravings Omeprazole (Omeprazole 20 Mg Capsule.Dr) 20 mg PO BID@0630,1630 [facility] Last Admin: 04/10/21 09:09 Dose: 20 mg Documented by: Propranolol HCl (Propranolol Hcl 20 Mg Tablet) 20 mg PO BID [facility]; Protocol Last Admin: 04/10/21 09:09 Dose: 20 mg Documented by: Thiamine HCl (Thiamine Hcl 100 Mg Tablet) 100 mg PO DAILY [facility] Stop: 04/11/21 08:59 Last Admin: 04/10/21 09:10 Dose: 100 mg Documented by: Trazodone HCl (Trazodone Hcl 50 Mg Tablet) 50 mg PO BEDTIME PRN PRN Reason: Insomnia Allergies Allergies Allergy/AdvReac Type Severity Reaction Status Date / Time diphenhydramine AdvReac Unknown FALLS Unverified 12/15/19 19:22 [From BENADRYL] ASLEEP FOR LONG TIME- DOESN'T LIKE WAY IT MAKES FEEL pt states no food/medication Allergy Unknown Uncoded 04/22/17 00:00 a Assessment & Plan Assessment & Plan (1) MDD (major depressive disorder), recurrent episode, severe: Status: Acute Code(s): F33.2 - Major depressive disorder, recurrent severe without psychotic features (2) Alcohol use disorder, severe, dependence: Status: Acute Code(s): F10.20 - Alcohol dependence, uncomplicated Assessment and Plan: Ms. Rosas is a 35 year-old woman with hx of alcohol use dependece severe with significant medical complication including cirrhosis and esophageal varices who self presented [place] [facility] [place] reporting increased depression, anhedonia, passive suicidal ideation, wanting to drink until . Utox negative. BAL 277. Last drink on 04/06- monitoring alcohol withdrawal given severity of alcohol use, hx of alcohol withdrawal seizures. PLAN: 1. Admit to M3, 15 minutes checks, CV 2. INcrease Gabapentin 600mg po TID 3. Continue CIWA q4hrs, PRN ativan per score, decrease ativan 0.5mg po TID. Continue Thiamine 100mg po daily, folic acid 1 mg po daily. SBP has been <150 today, DBP<90. 4. Started on ferrous sulfate 325 po daily for microcytic anemia. 5. obtain collateral information-sister concern about pt's health ability to care for herself and her son. 6. aftercare planning I spent minutes with the patient and/or on the patient floor today, greater than?50% of which was spent counseling/coordinating care. Reason for contiued inpatient stay Substantial Risk for: harm to self
[2021-04-10 13:09] VITALS: BP 101/59; PULSE 81
[2021-04-10] MEDS: Gabapentin 300 MG CAPSULE 600 MG PO ×2 (14:52→22:45)
[2021-04-10] MEDS: LORazepam 0.5 MG TABLET PO ×2 (14:52→22:45)
[2021-04-10 20:50] VITALS: BP 115/60; PULSE 94; TEMP 36.9; O2SAT 99
[2021-04-10] MEDS: LORazepam 1 MG TABLET 2 MG PO (21:01)
[2021-04-10 22:49] VITALS: BP 119/71; PULSE 88
[2021-04-11] MEDS: Nicotine 21 MG PATCH.TD24 TRANSDERMA (08:54)
[2021-04-11 08:55] VITALS: BP 109/60; PULSE 84; RESP 16; TEMP 36.7; O2SAT 98
[2021-04-11] MEDS: Ferrous Sulfate 324 MG TABLET.DR PO (08:55)
[2021-04-11] MEDS: Propranolol HCL 20 MG TABLET PO ×2 (08:55→22:02)
[2021-04-11] MEDS: Gabapentin 300 MG CAPSULE 600 MG PO ×3 (08:55→22:02)
[2021-04-11] MEDS: Famotidine 20 MG TABLET PO ×2 (08:55→22:02)
[2021-04-11] MEDS: Omeprazole 20 MG CAPSULE.DR PO ×2 (08:56→16:03)
[2021-04-11] MEDS: LORazepam 0.5 MG TABLET PO ×3 (08:56→22:02)
--- NOTE | 2021-04-11 10:18 | PC.NURSE ---
At 0900 I reported to Shanique Cueva NP this patient's CIWA score, I relayed my concerns that patient is using word for word CIWA responses and is essentially scoring herself very high on subjective responses but that VS and objective observation do not support this CIWA of 18. Based on the CIWA patient would be due for ativan 3mg and I informed Shanique that I was uncomfortable administering that dose att his time. She verbalized understanding and stated she will be making changes to the med regime this morning.
--- NOTE | 2021-04-11 11:00 | P.PNPSI_ITS ---
Subjective Subjective Date of Service: 04/11/21 Reason For Visit: SI Subjective Notes: Conditional Voluntary Interim History: Pt reports feeling slightly less anxious, less depressed. She reports trying to go to groups and be more visible in the unit. She denies SI/ HI. No overt s/s of alcohol withdrawal, but pt does report craving alcohol. Per nursing, noted pt exagerating withdrawal symptoms to get high dose of ativan. Medication Compliance: Yes Side effects from medications: No Attending Groups: No Review of Systems Review of Systems Constitutional : No Fever, No Chills ENT/Mouth : No sore throat, No Rhinorrhea Eyes: No Eye Pain, No Swelling, No Redness Cardiovascular : No Chest Pain, No SOB Respiratory : No Cough, No Sputum Gastrointestinal : No Nausea, No Vomiting, No Diarrhea, No abdominal Pain Genitourinary : No Dysuria, No Hematuria Musculoskeletal : No joint pain, No Myalgias, No Joint Swelling Skin : No Skin Lesions, No rash Neuro : No Weakness, No Numbness Psych : No Anxiety, No Depression, No SI/HI/AH/VH All other systems reviewed and are negative Yes all other systems are reviewed and are negative Reports system reviewed and no additional complaints, except as documented Cardiovascular: Denies chest pain, Denies chest pain at rest, Denies Epigastric Pain, Denies rapid heart rate, Denies lightheadedness, Denies dyspnea and Denies dyspnea on exertion Respiratory: Denies chest congestion, Denies hemoptysis, Denies pain with cough, Denies dyspnea and Denies dyspnea on exertion Gastrointestinal: Denies constipation, Reports dyspepsia, Denies diarrhea and Reports nausea Musculoskeletal: Reports myalgias Psychiatric: Reports depression Allergic/Immunologic: Denies no additional allergic/immunologic complaints Mental Status Exam Mental Status Exam Narrative: Appearance: casually groomed, fair hygiene in NAD Behavior:cooperative psychomotor:no agitation or retardation noted Speech:clear, normal rate/rhythm/volume, spontaneous Thought process:linear Thought content:no signs of psychosis, feeling overwhelmed, hopeless, helpless Mood: depressed and anxious Affect: blunted SI:passive HI:none VH/AH:none Delusions:none Insight/judgment:poor x 2. Memory/cog: alert, oriented x 3. grossly intact to conversational testing but not formally tested. Diagnostics Vital Signs (24Hr): Vital Signs - 24 hr 04/11/21 08:55 04/11/21 22:05 Temperature 98.0 F 98.2 F Pulse Rate 84 80 Respiratory Rate 16 Blood Pressure 109/60 114/65 Pulse Oximetry 98 100 BMI result Body Mass Index 37.8 Labs Results: 04/06/21 09:14 04/06/21 09:15 Labs: Laboratory Results - last 48 hr 04/08/21 10:51 Hepatitis A IgM Ab Nonreactive Imaging Radiology Impressions: ITS Impressions Abdomen/Pelvis CT 04/06/21 11:37 IMPRESSION: 1. Circumferential wall thickening of the colonic hepatic flexure with adjacent inflammatory change, consistent with acute colitis. No evidence of perforation or abscess formation. No small or large bowel obstruction. Unremarkable appendix. 2. Status post bariatric surgery without evidence of leak or obstruction. 3. Prominent hepatomegaly with increasing parenchymal echogenicity and lobulated hepatic contour when compared to the prior CT. Findings could represent steatosis and associated cirrhosis. No intra or extra hepatic biliary ductal dilatation. 4. Splenomegaly, increased when compared to the prior examination. 5. Retroperitoneal stranding without discrete lymphadenopathy, new/increased when compared to the prior examination. Fleischner guidelines were followed. Medications Medications Current Medications Acetaminophen (Acetaminophen 325 Mg Tablet) 650 mg PO Q6H PRN PRN Reason: Headache/Pain Mild Scale (1-3) Al Hydroxide/Mg Hydroxide (Magnesium Hydrox/Alum Hydrox 30 Ml Oral.Susp) 30 ml PO Q6H PRN PRN Reason: Heartburn/Nausea Famotidine (Famotidine 20 Mg Tablet) 20 mg PO BID [facility] Last Admin: 04/11/21 22:02 Dose: 20 mg Documented by: Ferrous Sulfate (Ferrous Sulfate 324 Mg Tablet.) 324 mg PO DAILY [facility] Last Admin: 04/11/21 08:55 Dose: 324 mg Documented by: Gabapentin (Gabapentin 300 Mg Capsule) 600 mg PO TID [facility] Last Admin: 04/11/21 22:02 Dose: 600 mg Documented by: Hydroxyzine HCl (Hydroxyzine Hcl 25 Mg Tablet) 25 mg PO BEDTIME PRN PRN Reason: Anxiety Lorazepam (Lorazepam 0.5 Mg Tablet) 0.5 mg PO TID [facility] Last Admin: 04/11/21 22:02 Dose: 0.5 mg Documented by: Lorazepam (Lorazepam 0.5 Mg Tablet) 0.5 mg PO Q6H PRN PRN Reason: anxiety Magnesium Hydroxide (Milk Of Magnesia 30 Ml Oral.Susp) 30 ml PO DAILY PRN PRN Reason: Constipation Mirtazapine (Mirtazapine 7.5 Mg Tablet) 7.5 mg PO BEDTIME [facility] Last Admin: 04/11/21 22:37 Dose: 7.5 mg Documented by: Nicotine (Nicotine 21 Mg Patch.Td24) 21 mg TRANSDERMA DAILY [facility] Last Admin: 04/11/21 08:54 Dose: 21 mg Documented by: Nicotine Polacrilex (Nicotine Polacrilex 2 Mg Gum) 2 mg BUCCAL Q2H PRN PRN Reason: Nicotine Cravings Omeprazole (Omeprazole 20 Mg Capsule.Dr) 20 mg PO BID@0630,1630 [facility] Last Admin: 04/11/21 16:03 Dose: 20 mg Documented by: Propranolol HCl (Propranolol Hcl 20 Mg Tablet) 20 mg PO BID [facility]; Protocol Last Admin: 04/11/21 22:02 Dose: 20 mg Documented by: Trazodone HCl (Trazodone Hcl 50 Mg Tablet) 50 mg PO BEDTIME PRN PRN Reason: Insomnia Last Admin: 04/11/21 22:02 Dose: 50 mg Documented by: Venlafaxine HCl (Venlafaxine Hcl Er 37.5 Mg Cap.Er.24h) 37.5 mg PO DAILY [facility] Last Admin: 04/11/21 16:40 Dose: 37.5 mg Documented by: Allergies Allergies Allergy/AdvReac Type Severity Reaction Status Date / Time diphenhydramine AdvReac Unknown FALLS Verified 04/12/21 00:17 [From BENADRYL] ASLEEP FOR LONG TIME- DOESN'T LIKE WAY IT MAKES FEEL pt states no food/medication Allergy Unknown falls Uncoded 04/12/21 00:17 a asleep for extended periods of time Assessment & Plan Assessment & Plan (1) MDD (major depressive disorder), recurrent episode, severe: Status: Acute Code(s): F33.2 - Major depressive disorder, recurrent severe without psychotic features (2) Alcohol use disorder, severe, dependence: Status: Acute Code(s): F10.20 - Alcohol dependence, uncomplicated Assessment and Plan: Ms. Rosas is a 35 year-old woman with hx of alcohol use dependece severe with significant medical complication including cirrhosis and esophageal varices who self presented to [facility] ED reporting increased depression, anhedonia, passive suicidal ideation, wanting to drink until . Utox negative. BAL 277. Last drink on 04/06- monitoring alcohol withdrawal given severity of alcohol use, hx of alcohol withdrawal seizures. PLAN: 1. Admit to M3, 15 minutes checks, CV 2. Continue Gabapentin 600mg po TID 3. Start effexor 37.5mg po daily 04/11 3. D/c ciwa- Continue Thiamine 100mg po daily, folic acid 1 mg po daily. SBP has been <150 today, DBP<90. 4. Started on ferrous sulfate 325 po daily for microcytic anemia. 5. obtain collateral information-sister concern about pt's health ability to care for herself and her son. 6. aftercare planning I spent minutes with the patient and/or on the patient floor today, greater than?50% of which was spent counseling/coordinating care. Reason for contiued inpatient stay Substantial Risk for: harm to self
[2021-04-11] MEDS: LORazepam 1 MG TABLET PO (12:55)
[2021-04-11 13:09] VITALS: BMI 37.8
[2021-04-11] MEDS: Venlafaxine HCl ER 37.5 MG CAP.ER.24H PO (16:40)
[2021-04-11] MEDS: traZODone HCL 50 MG TABLET PO (22:02)
[2021-04-11 22:05] VITALS: BP 114/65; PULSE 80; TEMP 36.8; O2SAT 100
[2021-04-11] MEDS: Mirtazapine 7.5 MG TABLET PO (22:37)
[2021-04-12 08:40] VITALS: BP 119/60; PULSE 75; RESP 18; TEMP 37.1; O2SAT 99
[2021-04-12] MEDS: Nicotine 21 MG PATCH.TD24 TRANSDERMA (08:40)
[2021-04-12] MEDS: LORazepam 0.5 MG TABLET PO ×4 (08:41→22:03)
[2021-04-12] MEDS: Omeprazole 20 MG CAPSULE.DR PO ×2 (08:41→18:15)
[2021-04-12] MEDS: Propranolol HCL 20 MG TABLET PO ×2 (08:41→22:08)
[2021-04-12] MEDS: Famotidine 20 MG TABLET PO ×2 (08:41→22:03)
[2021-04-12] MEDS: Ferrous Sulfate 324 MG TABLET.DR PO (08:41)
[2021-04-12] MEDS: Gabapentin 300 MG CAPSULE 600 MG PO ×3 (08:41→22:02)
[2021-04-12] MEDS: Venlafaxine HCl ER 37.5 MG CAP.ER.24H PO (08:41)
[2021-04-12 12:36] LABS: VITAMIN D (1,25 OH) D3 45 pg/mL; Vit D (1,25-Dihydroxy) Total 45 pg/mL (18-72); Vitamin D (1,25 OH) D2 <8 pg/mL
--- NOTE | 2021-04-12 18:13 | P.PNPSP_ITS ---
Subjective Subjective Date of Service: 04/12/21 Reason For Visit: SI Interim History: Patient seen and discussed with team. Patient evaluated this evening and upon interview she reports positive effect on addition of remeron and gabapentin. Says her sleep is improved and gabapentin sometimes gives me a spurt of energy. Pt states her ativan taper has been really hard, and there are still times I feel like I need. Says she is struggling with anxiety due to dealing with placement stuff and DCF stuff and that sometimes I can go through the day but if it hits me really hard, it's hard for me to stay calm and not have horrible thoughts where I'm catastrophizing everything. [place] with sx by wearing ear plugs. Says otherwise, my body feels good. Denies cravings for alcohol. Says she likes where her meds are at. Restarted effexor on admission, will continue to monitor for benefit. Mood is bored. Has been sleeping a lot but says she needed to catch up on the sleep. In the milieu, patient is safe and appropriate in behavior. Denies SI/SIB/HI upon inquiry. Denies irritability or assaultive ideation. Says she feels safe. Medication Compliance: Yes Side effects from medications: No Attending Groups: Yes Review of Systems Acute medical concerns: No Medical Review of Systems: unchanged Review of Systems Review of Systems CVS: No c/o chest pain, palpitations, no SOB CLINICAL ASSISTANT: No c/o dizziness, headache GI: No c/o Nausea, Vomiting, diarrhea, constipation or heartburn Mental Status Exam Mental Status Exam Narrative: Appearance: casually groomed, fair hygiene in NAD Behavior:cooperative psychomotor:no agitation or retardation noted Speech:clear, normal rate/rhythm/volume, spontaneous Thought process:linear Thought content:no signs of psychosis, feeling overwhelmed, hopeless, helpless Mood: bored Affect: euthymic SI:passive HI:none VH/AH:none Delusions:none Insight/judgment:poor x 2. Memory/cog: alert, oriented x 3. grossly intact to conversational testing but not formally tested. Diagnostics Vital Signs (24Hr): Vital Signs - 24 hr 04/11/21 22:05 04/12/21 08:40 Temperature 98.2 F 98.7 F Pulse Rate 80 75 Respiratory Rate 18 Blood Pressure 114/65 119/60 Pulse Oximetry 100 99 BMI result Body Mass Index 37.8 Labs Results: 04/06/21 09:14 04/06/21 09:15 Labs: Laboratory Results - last 48 hr 04/08/21 15:15 1,25 Dihydroxy Vit D 45 1,25 Dihydroxy Vit D2 <8 1,25 Dihydroxy Vit D3 45 Imaging Radiology Impressions: ITS Impressions Abdomen/Pelvis CT 04/06/21 11:37 IMPRESSION: 1. Circumferential wall thickening of the colonic hepatic flexure with adjacent inflammatory change, consistent with acute colitis. No evidence of perforation or abscess formation. No small or large bowel obstruction. Unremarkable appendix. 2. Status post bariatric surgery without evidence of leak or obstruction. 3. Prominent hepatomegaly with increasing parenchymal echogenicity and lobulated hepatic contour when compared to the prior CT. Findings could represent steatosis and associated cirrhosis. No intra or extra hepatic biliary ductal dilatation. 4. Splenomegaly, increased when compared to the prior examination. 5. Retroperitoneal stranding without discrete lymphadenopathy, new/increased when compared to the prior examination. Fleischner guidelines were followed. Assessment & Plan Certification I certify that partial hospital treatment is medically necessary due to the symptoms and problems resulting from the patient's mental illness and the failure to treat the patient at the partial hospital level of care would likely result in the patient requiring inpatient psychiatric care which could not be prevented at a less intensive level of care. I spent minutes with the patient and/or on the patient floor today, greater than?50% of which was spent counseling/coordinating care. Discharge Plan Discharge Referrals: Van Watts MD [Physician] - 1 Week Discharge Medications: New pramoxine [Proctofoam] 1 % foam 1 appl DC DAILY Qty: 15 RF: 0 ferrous sulfate 325 mg (65 mg iron) tablet,delayed release (DR/EC) 325 mg PO DAILY Qty: 20 RF: 0 Activity Restrictions/Additional Instructions: Take your medications as prescribed. If you were prescribed antibiotics today, it is important that you take your medication to their entirety, do not skip any doses, do not finish them early. Follow-up with your primary care provider this week. Return to the emergency department with new or worsening symptoms. In case of emergency call 911 Patient Instructions: Abuse of Alcohol (ED), Alcohol Withdrawal (ED), Abdominal Pain (ED), Anemia (ED), Colitis (ED), Alcohol Use Disorder (ED), Suicide Prevention (ED)
[2021-04-12 21:51] VITALS: BP 111/62; PULSE 78; TEMP 36.9; O2SAT 100
[2021-04-12] MEDS: Mirtazapine 7.5 MG TABLET PO (22:03)
--- NOTE | 2021-04-13 02:30 | PC.NURSE ---
CIWA-orders are still in place for CIWA but is not exhibiting s/s of alcohol w/d and is on an ativan taper.
[2021-04-13] MEDS: Nicotine 21 MG PATCH.TD24 TRANSDERMA (08:50)
[2021-04-13] MEDS: Gabapentin 300 MG CAPSULE 600 MG PO ×3 (08:51→21:49)
[2021-04-13] MEDS: Venlafaxine HCl ER 37.5 MG CAP.ER.24H PO (08:51)
[2021-04-13] MEDS: Omeprazole 20 MG CAPSULE.DR PO ×2 (08:51→17:33)
[2021-04-13] MEDS: LORazepam 0.5 MG TABLET PO ×4 (08:51→21:49)
[2021-04-13] MEDS: Ferrous Sulfate 324 MG TABLET.DR PO (08:51)
[2021-04-13] MEDS: Famotidine 20 MG TABLET PO ×2 (08:51→21:49)
[2021-04-13 09:00] VITALS: BP 107/56; PULSE 72; RESP 16; TEMP 36.9; O2SAT 99
--- NOTE | 2021-04-13 09:03 | HO.PSYCHPN ---
Subjective Subjective Date of Service: 04/13/21 Reason For Visit: SI Subjective Notes: Conditional Voluntary Interim History: Patient was seen and discussed in rounds today. Records and plans reviewed. She has requested for her hydroxyzine to be discontinued because it gives her ?QTC prolongation?. This was done. She has been off of CIWA protocol and is on an Ativan taper which she is anxious about. She is visible, eating and sleeping adequately. No overt signs of anxiety. No other changes were made. Medication Compliance: Yes Side effects from medications: No Attending Groups: Yes Review of Systems Review of Systems Constitutional : No Fever, No Chills ENT/Mouth : No sore throat, No Rhinorrhea Eyes: No Eye Pain, No Swelling, No Redness Cardiovascular : No Chest Pain, No SOB Respiratory : No Cough, No Sputum Gastrointestinal : No Nausea, No Vomiting, No Diarrhea, No abdominal Pain Genitourinary : No Dysuria, No Hematuria Musculoskeletal : No joint pain, No Myalgias, No Joint Swelling Skin : No Skin Lesions, No rash Neuro : No Weakness, No Numbness Psych : No Anxiety, No Depression, No SI/HI/AH/VH All other systems reviewed and are negative Yes all other systems are reviewed and are negative Reports system reviewed and no additional complaints, except as documented Cardiovascular: Denies chest pain, Denies chest pain at rest, Denies Epigastric Pain, Denies rapid heart rate, Denies lightheadedness, Denies dyspnea and Denies dyspnea on exertion Respiratory: Denies chest congestion, Denies hemoptysis, Denies pain with cough, Denies dyspnea and Denies dyspnea on exertion Gastrointestinal: Denies constipation, Reports dyspepsia, Denies diarrhea and Reports nausea Musculoskeletal: Reports myalgias Psychiatric: Reports depression Allergic/Immunologic: Denies no additional allergic/immunologic complaints Diagnostics Vital Signs (24Hr): Vital Signs - 24 hr 04/12/21 21:51 Temperature 98.4 F Pulse Rate 78 Blood Pressure 111/62 Pulse Oximetry 100 BMI result Body Mass Index 37.8 Labs Results: 04/06/21 09:14 04/06/21 09:15 Labs: Laboratory Results - last 48 hr 04/08/21 15:15 1,25 Dihydroxy Vit D 45 1,25 Dihydroxy Vit D2 <8 1,25 Dihydroxy Vit D3 45 Imaging Radiology Impressions: ITS Impressions Abdomen/Pelvis CT 04/06/21 11:37 IMPRESSION: 1. Circumferential wall thickening of the colonic hepatic flexure with adjacent inflammatory change, consistent with acute colitis. No evidence of perforation or abscess formation. No small or large bowel obstruction. Unremarkable appendix. 2. Status post bariatric surgery without evidence of leak or obstruction. 3. Prominent hepatomegaly with increasing parenchymal echogenicity and lobulated hepatic contour when compared to the prior CT. Findings could represent steatosis and associated cirrhosis. No intra or extra hepatic biliary ductal dilatation. 4. Splenomegaly, increased when compared to the prior examination. 5. Retroperitoneal stranding without discrete lymphadenopathy, new/increased when compared to the prior examination. Fleischner guidelines were followed. Medications Medications Current Medications Acetaminophen (Acetaminophen 325 Mg Tablet) 650 mg PO Q6H PRN PRN Reason: Headache/Pain Mild Scale (1-3) Al Hydroxide/Mg Hydroxide (Magnesium Hydrox/Alum Hydrox 30 Ml Oral.Susp) 30 ml PO Q6H PRN PRN Reason: Heartburn/Nausea Famotidine (Famotidine 20 Mg Tablet) 20 mg PO BID [facility] Last Admin: 04/13/21 08:51 Dose: 20 mg Documented by: Ferrous Sulfate (Ferrous Sulfate 324 Mg Tablet.Dr) 324 mg PO DAILY [facility] Last Admin: 04/13/21 08:51 Dose: 324 mg Documented by: Gabapentin (Gabapentin 300 Mg Capsule) 600 mg PO TID [facility] Last Admin: 04/13/21 08:51 Dose: 600 mg Documented by: Lorazepam (Lorazepam 0.5 Mg Tablet) 0.5 mg PO TID [facility] Last Admin: 04/13/21 08:51 Dose: 0.5 mg Documented by: Lorazepam (Lorazepam 0.5 Mg Tablet) 0.5 mg PO Q6H PRN PRN Reason: anxiety Last Admin: 04/12/21 22:03 Dose: 0.5 mg Documented by: Magnesium Hydroxide (Milk Of Magnesia 30 Ml Oral.Susp) 30 ml PO DAILY PRN PRN Reason: Constipation Mirtazapine (Mirtazapine 7.5 Mg Tablet) 7.5 mg PO BEDTIME [facility] Last Admin: 04/12/21 22:03 Dose: 7.5 mg Documented by: Nicotine (Nicotine 21 Mg Patch.Td24) 21 mg TRANSDERMA DAILY [facility] Last Admin: 04/13/21 08:50 Dose: 21 mg Documented by: Nicotine Polacrilex (Nicotine Polacrilex 2 Mg Gum) 2 mg BUCCAL Q2H PRN PRN Reason: Nicotine Cravings Omeprazole (Omeprazole 20 Mg Capsule.) 20 mg PO BID@0630,1630 [facility] Last Admin: 04/13/21 08:51 Dose: 20 mg Documented by: Propranolol HCl (Propranolol Hcl 20 Mg Tablet) 20 mg PO BID [facility]; Protocol Last Admin: 04/12/21 22:08 Dose: 20 mg Documented by: Trazodone HCl (Trazodone Hcl 50 Mg Tablet) 50 mg PO BEDTIME PRN PRN Reason: Insomnia Last Admin: 04/11/21 22:02 Dose: 50 mg Documented by: Venlafaxine HCl (Venlafaxine Hcl Er 37.5 Mg Cap.Er.24h) 37.5 mg PO DAILY [facility] Last Admin: 04/13/21 08:51 Dose: 37.5 mg Documented by: Allergies Allergies Allergy/AdvReac Type Severity Reaction Status Date / Time diphenhydramine AdvReac Unknown FALLS Verified 04/12/21 00:17 [From BENADRYL] ASLEEP FOR LONG TIME- DOESN'T LIKE WAY IT MAKES FEEL pt states no food/medication Allergy Unknown falls Uncoded 04/12/21 00:17 a asleep for extended periods of time Assessment & Plan Assessment & Plan (1) MDD (major depressive disorder), recurrent episode, severe: Status: Acute Code(s): F33.2 - Major depressive disorder, recurrent severe without psychotic features (2) Alcohol use disorder, severe, dependence: Status: Acute Code(s): F10.20 - Alcohol dependence, uncomplicated Assessment and Plan: Ms. Rosas is a 35 year-old woman with hx of alcohol use dependece severe with significant medical complication including cirrhosis and esophageal varices who self presented to [facility] reporting increased depression, anhedonia, passive suicidal ideation, wanting to drink until . Utox negative. BAL 277. Last drink on 04/06- monitoring alcohol withdrawal given severity of alcohol use, hx of alcohol withdrawal seizures. PLAN: 1. Admit to M3, 15 minutes checks, CV 2. Continue Gabapentin 600mg po TID 3. Start effexor 37.5mg po daily 04/11 3. D/c ciwa- Continue Thiamine 100mg po daily, folic acid 1 mg po daily. SBP has been <150 today, DBP<90. 4. Started on ferrous sulfate 325 po daily for microcytic anemia. 5. obtain collateral information-sister concern about pt's health ability to care for herself and her son. 6. aftercare planning 04/13/2021 Continue current regimen and plans. Hydroxyzine was discontinued today I spent minutes with the patient and/or on the patient floor today, greater than?50% of which was spent counseling/coordinating care. Reason for contiued inpatient stay Substantial Risk for: other
--- NOTE | 2021-04-13 09:34 | HO.PSYCHPN ---
Subjective Subjective Date of Service: 04/12/21 Reason For Visit: SI Interim History: Patient seen and discussed with team. Patient evaluated this evening and upon interview she reports positive effect on addition of remeron and gabapentin. Says her sleep is improved and gabapentin sometimes gives me a spurt of energy. Pt states her ativan taper has been really hard, and there are still times I feel like I need. Says she is struggling with anxiety due to dealing with placement stuff and DCF stuff and that sometimes I can go through the day but if it hits me really hard, it's hard for me to stay calm and not have horrible thoughts where I'm catastrophizing everything. [place] with sx by wearing ear plugs. Says otherwise, my body feels good. Denies cravings for alcohol. Says she likes where her meds are at. Restarted effexor on admission, will continue to monitor for benefit. Mood is bored. Has been sleeping a lot but says she needed to catch up on the sleep. In the milieu, patient is safe and appropriate in behavior. Denies SI/SIB/HI upon inquiry. Denies irritability or assaultive ideation. Says she feels safe.? Medication Compliance: Yes Side effects from medications: No Attending Groups: Yes Review of Systems Acute medical concerns: No Medical Review of Systems: unchanged Review of Systems Review of Systems CVS: No c/o chest pain, palpitations, no SOB [employer]: No c/o dizziness, headache GI: No c/o Nausea, Vomiting, diarrhea, constipation or heartburn Mental Status Exam Mental Status Exam Narrative: Appearance: casually groomed, fair hygiene in NAD Behavior:cooperative psychomotor:no agitation or retardation noted Speech:clear, normal rate/rhythm/volume, spontaneous Thought process:linear Thought content:no signs of psychosis, feeling overwhelmed, hopeless, helpless Mood: bored Affect: euthymic SI:passive HI:none VH/AH:none Delusions:none Insight/judgment:poor x 2. Memory/cog: alert, oriented x 3. grossly intact to conversational testing but not formally tested. Diagnostics Vital Signs (24Hr): Vital Signs - 24 hr 04/12/21 21:51 04/13/21 09:00 Temperature 98.4 F 98.4 F Pulse Rate 78 72 Respiratory Rate 16 Blood Pressure 111/62 107/56 L Pulse Oximetry 100 99 BMI result Body Mass Index 37.8 Labs Results: 04/06/21 09:14 04/06/21 09:15 Labs: Laboratory Results - last 48 hr 04/08/21 15:15 1,25 Dihydroxy Vit D 45 1,25 Dihydroxy Vit D2 <8 1,25 Dihydroxy Vit D3 45 Imaging Radiology Impressions: ITS Impressions Abdomen/Pelvis CT 04/06/21 11:37 IMPRESSION: 1. Circumferential wall thickening of the colonic hepatic flexure with adjacent inflammatory change, consistent with acute colitis. No evidence of perforation or abscess formation. No small or large bowel obstruction. Unremarkable appendix. 2. Status post bariatric surgery without evidence of leak or obstruction. 3. Prominent hepatomegaly with increasing parenchymal echogenicity and lobulated hepatic contour when compared to the prior CT. Findings could represent steatosis and associated cirrhosis. No intra or extra hepatic biliary ductal dilatation. 4. Splenomegaly, increased when compared to the prior examination. 5. Retroperitoneal stranding without discrete lymphadenopathy, new/increased when compared to the prior examination. Fleischner guidelines were followed. Medications Medications Current Medications Acetaminophen (Acetaminophen 325 Mg Tablet) 650 mg PO Q6H PRN PRN Reason: Headache/Pain Mild Scale (1-3) Al Hydroxide/Mg Hydroxide (Magnesium Hydrox/Alum Hydrox 30 Ml Oral.Susp) 30 ml PO Q6H PRN PRN Reason: Heartburn/Nausea Famotidine (Famotidine 20 Mg Tablet) 20 mg PO BID [facility] Last Admin: 04/13/21 08:51 Dose: 20 mg Documented by: Ferrous Sulfate (Ferrous Sulfate 324 Mg Tablet.) 324 mg PO DAILY [facility] Last Admin: 04/13/21 08:51 Dose: 324 mg Documented by: Gabapentin (Gabapentin 300 Mg Capsule) 600 mg PO TID [facility] Last Admin: 04/13/21 08:51 Dose: 600 mg Documented by: Lorazepam (Lorazepam 0.5 Mg Tablet) 0.5 mg PO TID [facility] Last Admin: 04/13/21 08:51 Dose: 0.5 mg Documented by: Lorazepam (Lorazepam 0.5 Mg Tablet) 0.5 mg PO Q6H PRN PRN Reason: anxiety Last Admin: 04/12/21 22:03 Dose: 0.5 mg Documented by: Magnesium Hydroxide (Milk Of Magnesia 30 Ml Oral.Susp) 30 ml PO DAILY PRN PRN Reason: Constipation Mirtazapine (Mirtazapine 7.5 Mg Tablet) 7.5 mg PO BEDTIME [facility] Last Admin: 04/12/21 22:03 Dose: 7.5 mg Documented by: Nicotine (Nicotine 21 Mg Patch.Td24) 21 mg TRANSDERMA DAILY [facility] Last Admin: 04/13/21 08:50 Dose: 21 mg Documented by: Nicotine Polacrilex (Nicotine Polacrilex 2 Mg Gum) 2 mg BUCCAL Q2H PRN PRN Reason: Nicotine Cravings Omeprazole (Omeprazole 20 Mg Capsule.Dr) 20 mg PO BID@0630,1630 [facility] Last Admin: 04/13/21 08:51 Dose: 20 mg Documented by: Propranolol HCl (Propranolol Hcl 20 Mg Tablet) 20 mg PO BID [facility]; Protocol Last Admin: 04/12/21 22:08 Dose: 20 mg Documented by: Trazodone HCl (Trazodone Hcl 50 Mg Tablet) 50 mg PO BEDTIME PRN PRN Reason: Insomnia Last Admin: 04/11/21 22:02 Dose: 50 mg Documented by: Venlafaxine HCl (Venlafaxine Hcl Er 37.5 Mg Cap.Er.24h) 37.5 mg PO DAILY [facility] Last Admin: 04/13/21 08:51 Dose: 37.5 mg Documented by: Allergies Allergies Allergy/AdvReac Type Severity Reaction Status Date / Time diphenhydramine AdvReac Unknown FALLS Verified 04/12/21 00:17 [From BENADRYL] ASLEEP FOR LONG TIME- DOESN'T LIKE WAY IT MAKES FEEL pt states no food/medication Allergy Unknown falls Uncoded 04/12/21 00:17 a asleep for extended periods of time Assessment & Plan Assessment & Plan (1) MDD (major depressive disorder), recurrent episode, severe: Status: Acute Code(s): F33.2 - Major depressive disorder, recurrent severe without psychotic features (2) Alcohol use disorder, severe, dependence: Status: Acute Code(s): F10.20 - Alcohol dependence, uncomplicated Assessment and Plan: Ms. Rosas is a 35 year-old woman with hx of alcohol use dependece severe with significant medical complication including cirrhosis and esophageal varices who self presented to [facility] reporting increased depression, anhedonia, passive suicidal ideation, wanting to drink until . Utox negative. BAL 277. Last drink on 04/06- monitoring alcohol withdrawal given severity of alcohol use, hx of alcohol withdrawal seizures. PLAN: 1. Admit to M3, 15 minutes checks, CV 2. Continue Gabapentin 600mg po TID 3. Continue effexor 37.5mg po daily, started 04/11 4. continue ativan taper, currently on 0.5 mg TID and 0.5 mg TID PRN? 5. Started on ferrous sulfate 325 po daily for microcytic anemia. 6. obtain collateral information-sister concern about pt's health ability to care for herself and her son. 7. aftercare planning I spent minutes with the patient and/or on the patient floor today, greater than?50% of which was spent counseling/coordinating care. Reason for contiued inpatient stay Substantial Risk for: rapid decompensation and med/psych decompensation
[2021-04-13] MEDS: Propranolol HCL 20 MG TABLET PO ×2 (13:42→21:49)
[2021-04-13] MEDS: Mirtazapine 7.5 MG TABLET PO (21:49)
[2021-04-13 21:51] VITALS: BP 112/60; PULSE 71; TEMP 36.8; O2SAT 100
[2021-04-14 06:00] VITALS: BP 117/58; PULSE 84; RESP 16; TEMP 36.6; O2SAT 98
--- NOTE | 2021-04-14 08:25 | HO.PSYCHPN ---
Subjective Subjective Date of Service: 04/14/21 Reason For Visit: SI Subjective Notes: Conditional Voluntary Medical Problems Affecting Mental Status: No Interim History: Patient was seen and discussed in rounds today. She has been feeling quite anxious but no longer going through withdrawals. She has she has been having some auditory hallucinations which is new for her. They are not command in nature and sometimes it's musical. No other complaints or side effects. No changes were made today Medication Compliance: Yes Side effects from medications: No Review of Systems Review of Systems Yes all other systems are reviewed and are negative Diagnostics Vital Signs (24Hr): Vital Signs - 24 hr 04/13/21 09:00 04/13/21 21:51 Temperature 98.4 F 98.2 F Pulse Rate 72 71 Respiratory Rate 16 Blood Pressure 107/56 L 112/60 Pulse Oximetry 99 100 BMI result Body Mass Index 37.8 Labs Results: 04/06/21 09:14 04/06/21 09:15 Labs: Laboratory Results - last 48 hr 04/08/21 15:15 1,25 Dihydroxy Vit D 45 1,25 Dihydroxy Vit D2 <8 1,25 Dihydroxy Vit D3 45 Imaging Radiology Impressions: ITS Impressions Abdomen/Pelvis CT 04/06/21 11:37 IMPRESSION: 1. Circumferential wall thickening of the colonic hepatic flexure with adjacent inflammatory change, consistent with acute colitis. No evidence of perforation or abscess formation. No small or large bowel obstruction. Unremarkable appendix. 2. Status post bariatric surgery without evidence of leak or obstruction. 3. Prominent hepatomegaly with increasing parenchymal echogenicity and lobulated hepatic contour when compared to the prior CT. Findings could represent steatosis and associated cirrhosis. No intra or extra hepatic biliary ductal dilatation. 4. Splenomegaly, increased when compared to the prior examination. 5. Retroperitoneal stranding without discrete lymphadenopathy, new/increased when compared to the prior examination. Fleischner guidelines were followed. Medications Medications Current Medications Acetaminophen (Acetaminophen 325 Mg Tablet) 650 mg PO Q6H PRN PRN Reason: Headache/Pain Mild Scale (1-3) Al Hydroxide/Mg Hydroxide (Magnesium Hydrox/Alum Hydrox 30 Ml Oral.Susp) 30 ml PO Q6H PRN PRN Reason: Heartburn/Nausea Famotidine (Famotidine 20 Mg Tablet) 20 mg PO BID [facility] Last Admin: 04/13/21 21:49 Dose: 20 mg Documented by: Ferrous Sulfate (Ferrous Sulfate 324 Mg Tablet.) 324 mg PO DAILY [facility] Last Admin: 04/13/21 08:51 Dose: 324 mg Documented by: Gabapentin (Gabapentin 300 Mg Capsule) 600 mg PO TID [facility] Last Admin: 04/13/21 21:49 Dose: 600 mg Documented by: Lorazepam (Lorazepam 0.5 Mg Tablet) 0.5 mg PO TID [facility] Last Admin: 04/13/21 21:49 Dose: 0.5 mg Documented by: Lorazepam (Lorazepam 0.5 Mg Tablet) 0.5 mg PO Q6H PRN PRN Reason: anxiety Last Admin: 04/13/21 17:33 Dose: 0.5 mg Documented by: Magnesium Hydroxide (Milk Of Magnesia 30 Ml Oral.Susp) 30 ml PO DAILY PRN PRN Reason: Constipation Mirtazapine (Mirtazapine 7.5 Mg Tablet) 7.5 mg PO BEDTIME [facility] Last Admin: 04/13/21 21:49 Dose: 7.5 mg Documented by: Nicotine (Nicotine 21 Mg Patch.Td24) 21 mg TRANSDERMA DAILY [facility] Last Admin: 04/13/21 08:50 Dose: 21 mg Documented by: Nicotine Polacrilex (Nicotine Polacrilex 2 Mg Gum) 2 mg BUCCAL Q2H PRN PRN Reason: Nicotine Cravings Omeprazole (Omeprazole 20 Mg Capsule.) 20 mg PO BID@0630,1630 [facility] Last Admin: 04/13/21 17:33 Dose: 20 mg Documented by: Propranolol HCl (Propranolol Hcl 20 Mg Tablet) 20 mg PO BID [facility]; Protocol Last Admin: 04/13/21 21:49 Dose: 20 mg Documented by: Trazodone HCl (Trazodone Hcl 50 Mg Tablet) 50 mg PO BEDTIME PRN PRN Reason: Insomnia Last Admin: 04/11/21 22:02 Dose: 50 mg Documented by: Venlafaxine HCl (Venlafaxine Hcl Er 37.5 Mg Cap.Er.24h) 37.5 mg PO DAILY [facility] Last Admin: 04/13/21 08:51 Dose: 37.5 mg Documented by: Allergies Allergies Allergy/AdvReac Type Severity Reaction Status Date / Time diphenhydramine AdvReac Unknown FALLS Verified 04/12/21 00:17 [From BENADRYL] ASLEEP FOR LONG TIME- DOESN'T LIKE WAY IT MAKES FEEL pt states no food/medication Allergy Unknown falls Uncoded 04/12/21 00:17 a asleep for extended periods of time Assessment & Plan Assessment & Plan (1) MDD (major depressive disorder), recurrent episode, severe: Status: Acute Code(s): F33.2 - Major depressive disorder, recurrent severe without psychotic features (2) Alcohol use disorder, severe, dependence: Status: Acute Code(s): F10.20 - Alcohol dependence, uncomplicated Assessment and Plan: Ms. Rosas is a 35 year-old woman with hx of alcohol use dependece severe with significant medical complication including cirrhosis and esophageal varices who self presented to [facility] reporting increased depression, anhedonia, passive suicidal ideation, wanting to drink until . Utox negative. BAL 277. Last drink on 04/06- monitoring alcohol withdrawal given severity of alcohol use, hx of alcohol withdrawal seizures. PLAN: 1. Admit to M3, 15 minutes checks, CV 2. Continue Gabapentin 600mg po TID 3. Continue effexor 37.5mg po daily, started 04/11 4. continue ativan taper, currently on 0.5 mg TID and 0.5 mg TID PRN? 5. Started on ferrous sulfate 325 po daily for microcytic anemia. 6. obtain collateral information-sister concern about pt's health ability to care for herself and her son. 7. aftercare planning 04/14/2021 Continue current regimen and plans. No changes were made I spent minutes with the patient and/or on the patient floor today, greater than?50% of which was spent counseling/coordinating care. Reason for contiued inpatient stay Substantial Risk for: other
[2021-04-14] MEDS: Nicotine 21 MG PATCH.TD24 TRANSDERMA (09:24)
[2021-04-14] MEDS: Gabapentin 300 MG CAPSULE 600 MG PO ×3 (09:24→22:12)
[2021-04-14] MEDS: Ferrous Sulfate 324 MG TABLET.DR PO (09:24)
[2021-04-14] MEDS: Famotidine 20 MG TABLET PO ×2 (09:24→22:12)
[2021-04-14] MEDS: LORazepam 0.5 MG TABLET PO ×5 (09:24→22:11)
[2021-04-14] MEDS: Venlafaxine HCl ER 37.5 MG CAP.ER.24H PO (09:25)
[2021-04-14] MEDS: Omeprazole 20 MG CAPSULE.DR PO ×2 (09:25→15:50)
[2021-04-14] MEDS: Propranolol HCL 20 MG TABLET PO ×2 (11:25→22:11)
[2021-04-14 18:00] VITALS: BP 121/65; PULSE 86; TEMP 36.6; O2SAT 98
[2021-04-14] MEDS: Mirtazapine 7.5 MG TABLET PO (22:12)
[2021-04-15 06:00] VITALS: BP 115/61; PULSE 81; RESP 17; TEMP 37.1; O2SAT 97
[2021-04-15] MEDS: Omeprazole 20 MG CAPSULE.DR PO ×2 (09:49→15:39)
[2021-04-15] MEDS: Gabapentin 300 MG CAPSULE 600 MG PO (09:50)
[2021-04-15] MEDS: Ferrous Sulfate 324 MG TABLET.DR PO (09:50)
[2021-04-15] MEDS: Famotidine 20 MG TABLET PO ×2 (09:50→22:20)
[2021-04-15] MEDS: LORazepam 0.5 MG TABLET PO ×5 (09:50→22:21)
[2021-04-15] MEDS: Propranolol HCL 20 MG TABLET PO ×2 (09:51→22:20)
[2021-04-15] MEDS: Venlafaxine HCl ER 37.5 MG CAP.ER.24H PO (09:51)
[2021-04-15] MEDS: Nicotine 21 MG PATCH.TD24 TRANSDERMA (09:54)
[2021-04-15] MEDS: Cyanocobalamin (Vitamin B-12) 1,000 MCG TABLET 1000 MCG PO (10:35)
[2021-04-15] MEDS: Thiamine HCL 100 MG TABLET PO (10:35)
--- NOTE | 2021-04-15 13:05 | HO.PSYCHPN ---
Subjective Subjective Date of Service: 04/15/21 Reason For Visit: SI Subjective Notes: Conditional Voluntary Interim History: Pt reports feeling better in terms of alcohol withdrawal symptoms. She does report that evening are harder as she gets very anxious and tends to crave alcohol during that time. She reports sleep is good with remeron. She reports less depressed, no SI/HI. but worried about relapsing on alcohol. She has been visible in the unit, social with select peers. She reports gabapentin helping with mood/back pain. 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: No c/o dizziness, headache GI: No c/o Nausea, Vomiting, diarrhea, constipation or heartburn Yes all other systems are reviewed and are negative Reports system reviewed and no additional complaints, except as documented Cardiovascular: Denies chest pain, Denies chest pain at rest, Denies Epigastric Pain, Denies rapid heart rate, Denies lightheadedness, Denies dyspnea and Denies dyspnea on exertion Respiratory: Denies chest congestion, Denies hemoptysis, Denies pain with cough, Denies dyspnea and Denies dyspnea on exertion Gastrointestinal: Denies constipation, Reports dyspepsia, Denies diarrhea and Reports nausea Musculoskeletal: Reports myalgias Psychiatric: Reports depression Allergic/Immunologic: Denies no additional allergic/immunologic complaints Mental Status Exam Mental Status Exam Narrative: Appearance: casually groomed, fair hygiene in NAD Behavior:cooperative psychomotor:no agitation or retardation noted Speech:clear, normal rate/rhythm/volume, spontaneous Thought process:linear Thought content:no signs of psychosis, feeling overwhelmed, hopeless, helpless Mood: better Affect: brighter, less dysphoric SI:denies HI:none VH/AH:none Delusions:none Insight/judgment:poor x 2. Memory/cog: alert, oriented x 3. grossly intact to conversational testing but not formally tested. Diagnostics Vital Signs (24Hr): Vital Signs - 24 hr 04/14/21 18:00 04/15/21 06:00 Temperature 98 F 98.8 F Pulse Rate 86 81 Respiratory Rate 17 Blood Pressure 121/65 115/61 Pulse Oximetry 98 97 BMI result Body Mass Index 37.8 Labs Results: 04/06/21 09:14 04/06/21 09:15 Imaging Radiology Impressions: ITS Impressions Abdomen/Pelvis CT 04/06/21 11:37 IMPRESSION: 1. Circumferential wall thickening of the colonic hepatic flexure with adjacent inflammatory change, consistent with acute colitis. No evidence of perforation or abscess formation. No small or large bowel obstruction. Unremarkable appendix. 2. Status post bariatric surgery without evidence of leak or obstruction. 3. Prominent hepatomegaly with increasing parenchymal echogenicity and lobulated hepatic contour when compared to the prior CT. Findings could represent steatosis and associated cirrhosis. No intra or extra hepatic biliary ductal dilatation. 4. Splenomegaly, increased when compared to the prior examination. 5. Retroperitoneal stranding without discrete lymphadenopathy, new/increased when compared to the prior examination. Fleischner guidelines were followed. Medications Medications Current Medications Acetaminophen (Acetaminophen 325 Mg Tablet) 650 mg PO Q6H PRN PRN Reason: Headache/Pain Mild Scale (1-3) Al Hydroxide/Mg Hydroxide (Magnesium Hydrox/Alum Hydrox 30 Ml Oral.Susp) 30 ml PO Q6H PRN PRN Reason: Heartburn/Nausea Cyanocobalamin (Cyanocobalamin (Vitamin B-12) 1,000 Mcg Tablet) 1,000 mcg PO DAILY [facility] Last Admin: 04/15/21 10:35 Dose: 1,000 mcg Documented by: Famotidine (Famotidine 20 Mg Tablet) 20 mg PO BID [facility] Last Admin: 04/15/21 09:50 Dose: 20 mg Documented by: Ferrous Sulfate (Ferrous Sulfate 324 Mg Tablet.) 324 mg PO DAILY [facility] Last Admin: 04/15/21 09:50 Dose: 324 mg Documented by: Gabapentin (Gabapentin 300 Mg Capsule) 600 mg PO TID [facility] Last Admin: 04/15/21 09:50 Dose: 600 mg Documented by: Lorazepam (Lorazepam 0.5 Mg Tablet) 0.5 mg PO TID [facility] Last Admin: 04/15/21 09:50 Dose: 0.5 mg Documented by: Lorazepam (Lorazepam 0.5 Mg Tablet) 0.5 mg PO Q6H PRN PRN Reason: anxiety Last Admin: 04/14/21 22:11 Dose: 0.5 mg Documented by: Magnesium Hydroxide (Milk Of Magnesia 30 Ml Oral.Susp) 30 ml PO DAILY PRN PRN Reason: Constipation Mirtazapine (Mirtazapine 7.5 Mg Tablet) 7.5 mg PO BEDTIME [facility] Last Admin: 04/14/21 22:12 Dose: 7.5 mg Documented by: Nicotine (Nicotine 21 Mg Patch.Td24) 21 mg TRANSDERMA DAILY [facility] Last Admin: 04/15/21 09:54 Dose: 21 mg Documented by: Nicotine Polacrilex (Nicotine Polacrilex 2 Mg Gum) 2 mg BUCCAL Q2H PRN PRN Reason: Nicotine Cravings Omeprazole (Omeprazole 20 Mg Capsule.Dr) 20 mg PO BID@0630,1630 [facility] Last Admin: 04/15/21 09:49 Dose: 20 mg Documented by: Propranolol HCl (Propranolol Hcl 20 Mg Tablet) 20 mg PO BID [facility]; Protocol Last Admin: 04/15/21 09:51 Dose: 20 mg Documented by: Thiamine HCl (Thiamine Hcl 100 Mg Tablet) 100 mg PO DAILY [facility] Last Admin: 04/15/21 10:35 Dose: 100 mg Documented by: Trazodone HCl (Trazodone Hcl 50 Mg Tablet) 50 mg PO BEDTIME PRN PRN Reason: Insomnia Last Admin: 04/11/21 22:02 Dose: 50 mg Documented by: Venlafaxine HCl (Venlafaxine Hcl Er 75 Mg Cap.Er.24h) 75 mg PO DAILY [facility] Allergies Allergies Allergy/AdvReac Type Severity Reaction Status Date / Time diphenhydramine AdvReac Unknown FALLS Verified 04/12/21 00:17 [From BENADRYL] ASLEEP FOR LONG TIME- DOESN'T LIKE WAY IT MAKES FEEL pt states no food/medication Allergy Unknown falls Uncoded 04/12/21 00:17 a asleep for extended periods of time Assessment & Plan Assessment & Plan (1) MDD (major depressive disorder), recurrent episode, severe: Status: Acute Code(s): F33.2 - Major depressive disorder, recurrent severe without psychotic features (2) Alcohol use disorder, severe, dependence: Status: Acute Code(s): F10.20 - Alcohol dependence, uncomplicated Assessment and Plan: Ms. Rosas is a 35 year-old woman with hx of alcohol use dependece severe with significant medical complication including cirrhosis and esophageal varices who self presented to [facility] ED reporting increased depression, anhedonia, passive suicidal ideation, wanting to drink until . Utox negative. BAL 277. Last drink on 04/06- monitoring alcohol withdrawal given severity of alcohol use, hx of alcohol withdrawal seizures. PLAN: 1. Admit to M3, 15 minutes checks, CV 2. Increase Gabapentin 800mg po TID 3. Increase effexor 75mg po daily, started 04/11 4. continue ativan taper, currently on 0.5 mg TID and 0.5 mg TID PRN? 5. Started on ferrous sulfate 325 po daily for microcytic anemia. 6. obtain collateral information-sister concern about pt's health ability to care for herself and her son. 7. aftercare planning 04/14/2021 Continue current regimen and plans. No changes were made I spent minutes with the patient and/or on the patient floor today, greater than?50% of which was spent counseling/coordinating care. Reason for contiued inpatient stay Substantial Risk for: stable for discharge
[2021-04-15] MEDS: Gabapentin 400 MG CAPSULE 800 MG PO ×2 (14:23→22:20)
[2021-04-15 18:00] VITALS: BP 130/63; PULSE 80; RESP 18; TEMP 36.7; O2SAT 98
[2021-04-15] MEDS: Mirtazapine 7.5 MG TABLET PO (22:20)
--- NOTE | 2021-04-16 03:23 | PC.NURSE ---
Pt removed nicotine patch from left outer arm at approx. 2200 and returned it to [facility].
[2021-04-16 08:25] VITALS: BP 121/62; PULSE 76; RESP 16; TEMP 36.7; O2SAT 98
[2021-04-16] MEDS: Nicotine 21 MG PATCH.TD24 TRANSDERMA (08:35)
[2021-04-16] MEDS: Cyanocobalamin (Vitamin B-12) 1,000 MCG TABLET 1000 MCG PO (08:36)
[2021-04-16] MEDS: LORazepam 0.5 MG TABLET PO ×2 (08:36→10:56)
[2021-04-16] MEDS: Ferrous Sulfate 324 MG TABLET.DR PO (08:36)
[2021-04-16] MEDS: Famotidine 20 MG TABLET PO (08:36)
[2021-04-16] MEDS: Venlafaxine HCl ER 75 MG CAP.ER.24H PO (08:36)
[2021-04-16] MEDS: Gabapentin 400 MG CAPSULE 800 MG PO (08:36)
[2021-04-16] MEDS: Thiamine HCL 100 MG TABLET PO (08:36)
[2021-04-16] MEDS: Omeprazole 20 MG CAPSULE.DR PO (08:36)
[2021-04-16] MEDS: Propranolol HCL 20 MG TABLET PO (08:37)
--- NOTE | 2021-04-16 12:32 | PM.PSYDC ---
DS: Providers Provider Date of Service: 04/16/21 Date of admission: 04/07/21 14:04 Primary care physician: Unknown Physician DS: Diagnosis Discharge Diagnosis (1) MDD (major depressive disorder), recurrent episode, severe: Status: Acute (2) Alcohol use disorder, severe, dependence: Status: Acute DS: Medications Discharge Medications Home Medications: Previous Rx's Medication Instructions Recorded ferrous sulfate 325 mg (65 mg 325 mg PO DAILY #20 tab 04/06/21 iron) tablet,delayed release pramoxine 1 % topical foam 1 appl LA DAILY #15 g 04/06/21 (Proctofoam) cyanocobalamin (vitamin B-12) 1,000 mcg PO DAILY #30 tab 04/16/21 1,000 mcg tablet (Vitamin B-12) famotidine 20 mg tablet 20 mg PO BID #60 tab 04/16/21 ferrous sulfate 324 mg (65 mg 324 mg PO DAILY #30 tab 04/16/21 iron) tablet,delayed release gabapentin 800 mg tablet 800 mg PO TID #90 tab 04/16/21 mirtazapine 15 mg tablet 15 mg PO BEDTIME #30 tab 04/16/21 nicotine 21 mg/24 hr daily 21 mg TRANSDERMAL DAILY #30 ea 04/16/21 transdermal patch omeprazole 20 mg capsule,delayed 20 mg PO BID@0630,1630 #60 cap 04/16/21 release propranolol 20 mg tablet 20 mg PO BID #60 tab 04/16/21 thiamine mononitrate (vit B1) 100 100 mg PO DAILY #30 tab 04/16/21 mg tablet venlafaxine 75 mg capsule,extended 75 mg PO DAILY #30 cap 04/16/21 release 24 hr Mental Status Exam Mental Status Exam Narrative: Appearance: casually groomed, fair hygiene in NAD Behavior:cooperative psychomotor:no agitation or retardation noted Speech:clear, normal rate/rhythm/volume, spontaneous Thought process:linear Thought content:no signs of psychosis, feeling overwhelmed, hopeless, helpless Mood: better Affect: brighter, less dysphoric SI:denies HI:none VH/AH:none Delusions:none Insight/judgment:poor x 2. Memory/cog: alert, oriented x 3. grossly intact to conversational testing but not formally tested. Data Data Completed and Pending Completed studies during hospitalization [Text1]: 01/10/22 01/10/22 10:51 15:15 1,25 Dihydroxy Vit D 45 1,25 Dihydroxy Vit D2 <8 1,25 Dihydroxy Vit D3 45 Hepatitis A IgM Ab Nonreactive 04/06/21 Unknown Urine clean catch - Urine payne top Urine Culture - Final Imaging Diagnostic Imaging Impressions Abdomen/Pelvis CT 04/06/21 11:37 IMPRESSION: 1. Circumferential wall thickening of the colonic hepatic flexure with adjacent inflammatory change, consistent with acute colitis. No evidence of perforation or abscess formation. No small or large bowel obstruction. Unremarkable appendix. 2. Status post bariatric surgery without evidence of leak or obstruction. 3. Prominent hepatomegaly with increasing parenchymal echogenicity and lobulated hepatic contour when compared to the prior CT. Findings could represent steatosis and associated cirrhosis. No intra or extra hepatic biliary ductal dilatation. 4. Splenomegaly, increased when compared to the prior examination. 5. Retroperitoneal stranding without discrete lymphadenopathy, new/increased when compared to the prior examination. Fleischner guidelines were followed. DS: Summary Hospital Course Hospital Course: Subjective Notes: Ryder Warning and Conditional Voluntary Narrative: Ms. Rosas is a 35 year-old woman with extensive hx of alcohol dependence, PTSD who self presented to [facility] ED on 04/06/2021 reporting initially services for alcohol detox but later endorsed depression mood, anhedonia, passive suicidal ideation, wanting to drink until . Pt reports drinking 30 mips daily since December 2020. Prior to that she reports having 6 months sobriety. She reports using alcohol since age 11, heavy drinking since 2018. No other significant period of sobriety. Pt reports hx of cirrhosis and esophageal varicose secondary to alcohol dependence. She reports she has not follow up with OP providers to manage both ulcers and cirrhosis. Utox was negative otherwise. BAL was 277. On the unit, Pt reports using alcohol for a long time, does not know what triggered relapsed back in December after 6 months of not drinking. She endorses depressed mood, poor sleep, anhedonia, passive suicidal thoughts. She denies hx of VH/AH. She does report last night was seeing things that were not there as well as hearing things that were not there- appears to be alcohol hallucinosis. She reports anxious mood, BP more stable today, elevated in ED. She reports hx of alcohol withdrawal seizures. She reports she lives with her 10 year-old son who also stays at times with her sister who is her main support.? Past Psychiatric History: OP: none currently Inpatient psychiatric: none CSS- 2 total at [facility] and [facility]. Suicide attempts: denies Past medication trials: lexapro, effexor, gabapentin, clonazepam, ativan Medical Evaluation Reviewed: Yes CBC with diff- notable for microcytic anemia, low plt count 98 chem-7 wnl AST- 52; ALT 2; Al. phosphatase 152; Abdoment CT- shows hepatomegaly has worsened compared from CT from 2020. HOSPITAL COURSE On the unit, Ms. Rosas was admitted on a CV and placed on 15 minutes checks for safety. Pt reported feeling depressed, hopeless helpless. She did admit that alcohol use is a problem and she was powerless when it came to working towards her sobriety. We discussed risks, benefits and alternative treatment options. Pt agreed to start effexor for depression. She was started on gabapentin for anxiety/alcohol withdrawal. She was started on remeron for sleep. Her affect gradually appeared less dysphoric. She reported feeling less overwhelmed, more hopeful about her future. She denied SI/HI. She denied VH/AH. Given that alcohol use disorder has gotten to a point where pt does not have control over and her medical health is rapidly deteriorating, it was decided to file for mandatory alcohol use treatment. Collateral information was gathered from her sister, who reported long hx of alcohol in part minimized and enable by her own family. Sister in agreement with disposition. Status at Discharge Cognitive/behavioral status at discharge: Emilee presents as less labile/dysphoric, increasingly more future oriented and hopeful about her recovery. She denied SI/HI. She does admit that continued alcohol use is form of self harm but has no control over her drinking. No VH/AH. Sleep and appetite improved. Functional status at discharge: independent ambulation Overall status at discharge: patient is progressing back to baseline Time Spent with Patient Time attestation: Total time spent providing and/or coordinating discharge services: Time spent: Greater than 30 minutes Discharge Plan Discharge Patient Disposition: Home, Self-Care Discharge Diagnosis: MDD, recurrent, moderate Alcohol Use Disorder Referrals: Van Watts MD [Physician] - 1 Week Discharge Medications: New pramoxine [Proctofoam] 1 % foam 1 appl LA DAILY Qty: 15 0RF ferrous sulfate 325 mg (65 mg iron) tablet,delayed release (DR/EC) 325 mg PO DAILY Qty: 20 0RF nicotine 21 mg/24 hr Patch 24 Hour 21 mg transdermal DAILY Qty: 30 0RF propranolol 20 mg Tablet 20 mg PO BID Qty: 60 0RF Protocol: Hold for SBP/HR < HOLD for SBP < : 90 HOLD for HR < : 60 ferrous sulfate 324 mg (65 mg iron) Tablet,Delayed Release (Dr/Ec) 324 mg PO DAILY Qty: 30 0RF gabapentin 800 mg tablet 800 mg PO TID Qty: 90 0RF mirtazapine 15 mg tablet 15 mg PO BEDTIME Qty: 30 0RF venlafaxine 75 mg Capsule,Extended Release 24hr 75 mg PO DAILY Qty: 30 0RF cyanocobalamin (vitamin B-12) [Vitamin B-12] 1,000 mcg Tablet 1,000 mcg PO DAILY Qty: 30 0RF famotidine 20 mg Tablet 20 mg PO BID Qty: 60 0RF omeprazole 20 mg Capsule,Delayed Release(Dr/Ec) 20 mg PO BID@0630,1630 Qty: 60 0RF thiamine mononitrate (vit B1) 100 mg Tablet 100 mg PO DAILY Qty: 30 0RF Discharge Orders: Discharge Order (Routine); Ordered 04/16/21 Ordered By: Shanique Cueva Diet: regular diet Activity on Discharge: As tolerated Stand Alone Forms: Patient Portal Discharge page, Community Support Activity Restrictions/Additional Instructions: Take your medications as prescribed. If you were prescribed antibiotics today, it is important that you take your medication to their entirety, do not skip any doses, do not finish them early. Follow-up with your primary care provider this week. Return to the emergency department with new or worsening symptoms. In case of emergency call 911 Care Plan Goals: 1. Maintain mood 2. No SI/HI. 3. decrease alcohol use- harm reduction- continue recovery Health Concerns: Follow up with PCP and GI for cirrhosis, ulcers Plan of Treatment: 1. Take medications as prescribed. 2. Go to nearest ED or call 911 in event of emergency. Assessment: Pt with brighter affect, less depressed mood. Improved sleep/appetite. No SI/HI. No signs of aggression towards self or others. Pt does report alcohol cravings and feeling powerless when it comes to alcohol, which may affect her ability to stay in a program even if that's what she would like to do. Patient Instructions: Abuse of Alcohol (ED), Alcohol Withdrawal (ED), Abdominal Pain (ED), Anemia (ED), Colitis (ED), Alcohol Use Disorder (ED), Suicide Prevention (ED) Discharge Date/Time: 04/16/21 13:45
[2021-04-16] MEDS: LORazepam 1 MG TABLET PO (13:04)
--- NOTE | 2021-04-16 15:27 | PC.NURSE ---
Patient is pleasant upon approach. In the morning patient reported sleep and appetite were good. Patient reported to have low levels of depression, and moderate levels of Anxiety. Patient reported that these levels were manageable today . Patient denied SI/HI/AH/VH. Patient was told in early afternoon that a [address] is being pursued on her. Patient presented tearful, anxious, and agitated after this meeting with the nurse practitioner. Patient stated I am scared to go to this place . Security and RN escorted Patient off the unit to police custody.
== END 2021-04-16 13:45 | disposition home or self-care (01) | DRG 885 ==
LOC: HO.ED 14:49 → HO.PADLT16 04-07 14:07
PROVIDERS: Physician Assistant; Student in an Organized Health Care Education/Training Program; Admitting Provider Psychiatry & Neurology Psychiatry; Emergency Provider Internal Medicine; Visit Provider Social Worker
DX: F33.2 Major depressive disorder, recurrent severe without psychotic features (principal); R45.851 Suicidal ideations; F10.232 Alcohol dependence with withdrawal with perceptual disturbance; I85.10 Secondary esophageal varices without bleeding; F17.210 Nicotine dependence, cigarettes, uncomplicated; K70.30 Alcoholic cirrhosis of liver without ascites; Z71.6 Tobacco abuse counseling; Y90.8 Blood alcohol level of 240 mg/100 ml or more; Z20.822 Contact with and (suspected) exposure to COVID-19; Z79.899 Other long term (current) drug therapy
CPT/HCPCS: 36415; 74177; 80053; 80061; 80307; 81001; 81025; 82077; 82272; 82607; 82652; 82746; 83036; 83540; 83690; 83735; 84443; 85025; 86704; 86706; 86709; 86803; 87086; 87340; 87635; 93005; 99285; Q9967